=== PATIENT | male | born 1965 | race African-American/Black ===

== ENCOUNTER 2019-02-14 13:33 | Inpatient (IN) | payer OTHER ==
[2019-02-14 15:44] VITALS: BMI 24.7
--- NOTE | 2019-02-14 16:21 | HP ---
CIWA Score Nausea/Vomitin-Mild Nausea/No Vomiting Muscle Tremors: None Anxiety: 1-Mildly Anxious Agitation: 4-Moderately Restless Paroxysmal Sweats: No Perspiration Orientation: 1-Uncertain about Date Tacttile Disturbances: 0-None Auditory Disturbances: 0-None Visual Disturbances: 1-Very Mild Sensitivity Headache: 1-Very Mild CIWA-Ar Total Score: 9 - Admission Criteria OASAS Guidelines: Admission for Medically Managed Detox: Requires at least one of the followin. CIWA greater than 12 2. Seizures within the past 24 hours 3. Delirium tremens within the past 24 hours 4. Hallucinations within the past 24 hours 5. Acute intervention needed for co occurring medical disorder 6. Acute intervention needed for co occurring psychiatric disorder 7. Severe withdrawal that cannot be handled at a lower level of care (continued vomiting, continued diarrhea, abnormal vital signs) requiring intravenous medication and/or fluids 8. Admitting History and Physical - Admission History Source: Patient Limitations to Obtaining History: No Limitations - Past Medical History GOLD BUYER: Yes: Peripheral Neuropathy Cardiovascular: Yes: HTN, Hyperlipdemia, Other (peripheral vascular disease) Pulmonary: Yes: Asthma Psych: Yes: Bipolar, Schizophrenia - Past Surgical History Past Surgical History: Yes: Amputation (L 5 digits, R 5th digit) - Smoking History Smoking history: Never smoked Have you smoked in the past 12 months: No - Alcohol/Substance Use Hx Alcohol Use: Yes History of Substance Use: reports: Cocaine, Marijuana Date of Last Use: 02/13/19 - Social History Usual Living Arrangement: Yes: Alone (jail) Admission [facility] Chief Complaint: crack cocaine abuse Allergies/Adverse Reactions: Allergies Allergy/AdvReac Type Severity Reaction Status Date / Time Pork/Porcine Containing Allergy Intermediate Itching Verified 02/14/19 15:36 Products acetaminophen [From Tylenol] Allergy Mild Itching Verified 02/14/19 15:36 Pasta Allergy Intermediate Itching Uncoded 02/14/19 15:36 History of Present Illness: 53 y.o. M PMH DM2, HTN, HLD, asthma, schizophrenia and bipolar noncompliant with medications presenting for rehab. Pt is AOx1, not oriented to time or place , poor historian. Crack cocaine: Last use yesterday used 2g, $100. Uses 2x/ week. Route: smokes. Started in 1984. EtOH: 2x/ week. Drinks 1- 6 pack in 1 sitting. Marijuana: Uses occasionally. PSH: chest tube from abdominal foreign body. L- all 5 digits amputated 2013 R - August 2017- 5th digit Social hx: lives in jail. not working. Meds: metformin, albuterol inhaler, nifedipine, hydralazine, atorvastatin Exam Limitations: Altered Mental Status - Ebola screening Have you traveled outside of the country in the last 21 days: No Have you had contact with anyone from an Ebola affected area: No Do you have a fever: No - Review of Systems Constitutional: No Symptoms Reported EENT: reports: No Symptoms Reported Respiratory: reports: No Symptoms reported Cardiac: reports: No Symptoms Reported GI: reports: Nausea : reports: No Symptoms Reported Musculoskeletal: reports: No Symptoms Reported Integumentary: reports: No Symptoms Reported Neuro: reports: See HPI Endocrine: reports: No Symptoms Reported Hematology: reports: No Symptoms Reported Psychiatric: reports: Agitated, Disorientated Patient History - Patient Medical History Hx Anemia: No Hx Asthma: Yes (Pt is on Albuterol IH) Hx Chronic Obstructive Pulmonary Disease (COPD): No Hx Cancer: No Hx Cardiac Disorders: No Hx Congestive Heart Failure: No Hx Hypertension: No Hx Hypercholesterolemia: Yes Hx Pacemaker: No HX Cerebrovascular Accident: No Hx Seizures: No Hx Dementia: No Hx Diabetes: Yes (BGM: 317mg/dl) Hx Gastrointestinal Disorders: No Hx Liver Disease: No Hx Genitourinary Disorders: No Hx Sexually Transmitted Disorders: Yes (Gonorrhea 30 yrs ago) Hx Renal Disease (ESRD): No Hx Thyroid Disease: No Hx Human Immunodeficiency Virus (HIV): No Hx Hepatitis C: No Hx Depression: Yes Hx Suicide Attempt: No Hx Bipolar Disorder: No Hx Schizophrenia: Yes - Patient Surgical History Past Surgical History: Yes Hx Neurologic Surgery: No Hx Cataract Extraction: No Hx Cardiac Surgery: No Hx Lung Surgery: No Hx Breast Surgery: No Hx Breast Biopsy: No Hx Abdominal Surgery: No Hx Appendectomy: No Hx Cholecystectomy: No Hx Genitourinary Surgery: No Hx Orthopedic Surgery: Yes (2013 LEFT TOES AMPUTATION) Other Surgical History: 2004 KYLOID REMOVED Anesthesia Reaction: No - Smoking Cessation Smoking history: Never smoked Have you smoked in the past 12 months: No Hx Chewing Tobacco Use: No - Substance & Tx. History Hx Alcohol Use: Yes Hx Substance Use: Yes (crack cocaine) Substance Use Type: Alcohol, Cocaine, Marijuana - Substances abused Alcohol Substance route: Oral Frequency: Daily Amount used: 6 pk beer Age of first use: 8 Date of last use: 02/13/19 Cocaine Substance route: Smoking Frequency: 3-6 times per week Amount used: $10 Age of first use: 21 Date of last use: 02/13/19 Marijuana/Hashish Substance route: Smoking Admission Physical Exam [facility] - Vital Signs Vital Signs: Vital Signs - 24 hr 02/14/19 15:37 Temperature 96.6 F L Pulse Rate 82 Respiratory 18 Rate Blood Pressure 155/92 - Physical General Appearance: Yes: Disheveled, Irritable HEENTM: Yes: Hearing grossly Normal, Normocephalic, HARRY Respiratory: Yes: Within Normal Limits, Lungs Clear, Normal Breath Sounds, No Respiratory Distress, No Accessory Muscle Use Neck: Yes: No masses,lesions,Nodules Cardiology: Yes: Within Normal Limits, Regular Rhythm, Regular Rate Abdominal: Yes: Within Normal Limits, Non Tender, Soft Back: Yes: Within Normal Limits Musculoskeletal: Yes: full range of Motion Extremities: Yes: Normal Range of Motion, Other (Tenderness to palpation b/l LE' s knees through feet) Neurological: Yes: Alert, Disoriented (oriented only to self, not time or place) Integumentary: Yes: Pitting Edema (2+ pitting edema b/l LE) Lymphatic: Yes: Within Normal Limits - Diagnostic (1) Cocaine abuse Current Visit: Yes Status: Chronic (2) Asthma Current Visit: No Status: Chronic Qualifiers: Asthma severity: mild intermittent Asthma complication type: with status asthmaticus Qualified Code(s): J45.22 - Mild intermittent asthma with status asthmaticus (3) Diabetes mellitus, type II, insulin dependent Current Visit: No Status: Chronic Comment: PATIENT HAND IN ALL MEDICATIONS NO DIABETES MEDICATION WAS FOUND (4) Hypercholesteremia Current Visit: No Status: Chronic Comment: LIPITOR 20 MG (5) Hypertension Current Visit: No Status: Chronic Qualifiers: Hypertension type: essential hypertension Qualified Code(s): I10 - Essential (primary) hypertension Cleared for Admission S - Detox or Rehab [facility] Level of Care: Medically Managed Inpatient Rehab Admission - Rehab Decision to Admit Inpatient rehab admission?: Yes - Initial Determination Are CD services needed?: Yes Free of communicable disease: Yes Not in need of hospitalization: Yes - Rehab Admission Criteria Previous failed treatment: No Poor recovery environment: No Comorbidities: No Lacks judgement: Yes Patient is meeting Inpatient Rehab admission criteria:: Yes
[2019-02-14] MEDS ORDERED: P-EPHED 60MG/TRIPROLIDI 2.5MG TABLET PO PRN (16:59)
[2019-02-14] MEDS ORDERED: MENTHOL/PHENOL 1 EACH UD MM PRN (16:59)
[2019-02-14] MEDS ORDERED: MAGNESIUM CITRATE 300 ML BOTTLE PO PRN (16:59)
[2019-02-14] MEDS ORDERED: guaiFENesin 200 MG/10 ML 10 ML UNIT-DOSE CUPS PO PRN (16:59)
[2019-02-14] MEDS ORDERED: LOPERAMIDE HCL 2 MG CAPSULE PO PRN (16:59)
[2019-02-14] MEDS ORDERED: ACETAMINOPHEN 325 MG TABLET (FP) PO PRN (16:59)
[2019-02-14] MEDS ORDERED: MAGNESIUM HYDROX 2400MG/30ML ORAL SUSPENSION 30 ML CUP PO PRN (16:59)
[2019-02-14] MEDS ORDERED: MAG HYDROX/AL HYDROX/SIMETH 30 ML UNIT-DOSE CUP PO PRN (16:59)
[2019-02-14] MEDS ORDERED: ALBUTEROL SO4 8 GM HFA INHALER IH PRN (17:02)
--- NOTE | 2019-02-14 17:13 | PN ---
Teaching Attending Note Name of Resident: Brenda Rodriguez ATTENDING PHYSICIAN STATEMENT I saw and evaluated the patient. I reviewed the resident's note and discussed the case with the resident. I agree with the resident's findings and plan as documented. SUBJECTIVE:this 53 years old male with alcohol and cocaine abused,multiple medical problem,iddm,hypertension,hyperlipidemia,peripheral neuropathy,pvd, transmetatarsal amputation left in 1014, amputation of 5th digit right,bipolar disorder,schzophrenia OBJECTIVE: Vital Signs Temperature 96.6 F L 02/14/19 15:37 Pulse Rate 82 02/14/19 15:37 Respiratory Rate 18 02/14/19 15:37 Blood Pressure 155/92 02/14/19 15:37 O2 Sat by Pulse Oximetry (%) bgm 230 ASSESSMENT AND PLAN:this 53 years old male need rehab,psychiatric evaluation, and close monitoring
[2019-02-14] MEDS ORDERED: INSULIN SLIDING SCALE (NOVOLOG) 1 VIAL SQ SCH (22:00)
[2019-02-14] MEDS ORDERED: NIFEdipine E.R. 30 MG TABLET (FP) PO SCH (22:00)
[2019-02-14] MEDS: ATORVASTATIN CA 10 MG TABLET (FP) PO SCH (22:04)
[2019-02-14] MEDS: CARVEDILOL 12.5 MG TABLET (FP) PO SCH (22:04)
[2019-02-14] MEDS: THIAMINE HCL 100 MG TABLET (FP) PO SCH (22:05)
[2019-02-14] MEDS: INSULIN SLIDING SCALE (NOVOLOG) 1 VIAL SQ SCH (22:05)
[2019-02-15] MEDS: INSULIN SLIDING SCALE (NOVOLOG) 1 VIAL SQ SCH ×5 (07:48→23:11)
[2019-02-15] MEDS ORDERED: INSULIN (NOVOLOG) ASPART 100 UNITS/ML 10ML VIAL ONE ×2 (08:23→23:13)
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
[2019-02-15 10:08] LABS: HEMATOCRIT 27.9 % (35.4-49); HEMOGLOBIN 8.8 GM/dL (11.7-16.9); MCH 23.1 pg (25.7-33.7); MCHC 31.4 g/dl (32.0-35.9); MEAN CELL VOLUME 73.5 fl (80-96); MEAN PLT VOLUME 8.8 fl (7.5-11.1); PLATELET COUNT 205 K/MM3 (134-434); RDW 17.8 % (11.9-15.9); WHITE BLOOD COUNT 4.6 K/mm3 (4.0-10.0)
[2019-02-15 11:06] LABS: ALBUMIN 2.7 g/dl (3.4-5.0); BILIRUBIN,TOTAL 0.3 mg/dL (0.2-1); BLOOD UREA NITROGEN 64.2 mg/dL (7-18); CREATININE 3.2 mg/dL (0.55-1.3); POTASSIUM 4.6 mmol/L (3.5-5.1); TOT PROT 6.4 g/dl (6.4-8.2)
[2019-02-15] MEDS: NIFEdipine E.R. 30 MG TABLET (FP) PO SCH (11:11)
[2019-02-15] MEDS: CARVEDILOL 12.5 MG TABLET (FP) PO SCH ×3 (11:11→23:10)
[2019-02-15] MEDS: PRENATAL VITAMINS W/ FOLIC ACID TABLET (FP) PO SCH (11:12)
--- NOTE | 2019-02-15 12:25 | EKG ---
Test Reason : Blood Pressure : / mmHG Vent. Rate : 077 BPM Atrial Rate : 077 BPM P-R Int : 174 ms QRS Dur : 120 ms QT Int : 432 ms P-R-T Axes : 076 -34 114 degrees QTc Int : 488 ms NORMAL SINUS RHYTHM POSSIBLE LEFT ATRIAL ENLARGEMENT LEFT AXIS DEVIATION NON-SPECIFIC INTRA-VENTRICULAR CONDUCTION DELAY ABNORMAL ECG NO PREVIOUS ECGS AVAILABLE Confirmed by ALLI RODRIGUEZ MD ([id number]) on 02/15/2019 12:24:52 PM Referred By: BALAJI Confirmed By:ALLI RODRIGUEZ MD
[2019-02-15] MEDS: ATORVASTATIN CA 10 MG TABLET (FP) PO SCH ×2 (22:06→23:10)
[2019-02-15] MEDS: THIAMINE HCL 100 MG TABLET (FP) PO SCH ×2 (22:07→23:10)
[2019-02-15] MEDS: IBUPROFEN 400 MG TABLET (FP) PO PRN (23:38)
[2019-02-16] MEDS: INSULIN SLIDING SCALE (NOVOLOG) 1 VIAL SQ SCH ×4 (06:20→21:26)
--- NOTE | 2019-02-16 09:55 | PN ---
S Progress Note Note: Pt requesting oxycodone for feet pain- says motrin is not helping. d/w pt that we do not give oxycodone for pain- pt walked out of room.
[2019-02-16] MEDS: NIFEdipine E.R. 30 MG TABLET (FP) PO SCH (10:29)
[2019-02-16] MEDS: CARVEDILOL 12.5 MG TABLET (FP) PO SCH ×2 (10:29→21:26)
[2019-02-16] MEDS: PRENATAL VITAMINS W/ FOLIC ACID TABLET (FP) PO SCH (10:29)
[2019-02-16] MEDS: IBUPROFEN 400 MG TABLET (FP) PO PRN (10:32)
[2019-02-16] MEDS ORDERED: INSULIN (NOVOLOG) ASPART 100 UNITS/ML 10ML VIAL ONE (11:20)
[2019-02-16] MEDS: ATORVASTATIN CA 10 MG TABLET (FP) PO SCH (21:26)
[2019-02-16] MEDS: THIAMINE HCL 100 MG TABLET (FP) PO SCH (21:26)
--- NOTE | 2019-02-17 04:46 | PN ---
[facility] Progress Note Note: ASKED TO SEE CLIENT FOR COMPLAINT OF C.P. CLIENT REPORTS PAIN ALL OVER HIS BODY. MOSTLY IN HIS FEET WITH BURNING SENSATION , + SOB R/T PAIN. DENIES C.P., N/V, DIZZINESS, WEAKNESS. STATES HE DOES NOT WANT MOTRIN FOR PAIN AND WOULD LIKE SOMETHING STRONGER LIKE OXYCODONE. D/W CLIENT THat oxycodone is not given here. CLIENT BECAME QUIET AND DOES NOT WANT DIALOGUE WITH PROVIDER. STATING IF YOU CANT GIVE ME THAT THEN THERES NOTHING YOU CAN DO FOR ME. HE THEN YELLED OUT A BIG "UH" AND JUMPED IN HIS CHAIR WITH C/O C.P. CLIENT WAS OBSERVED SEATED COMFORTABLY IN HIS CHAIR, SHORTLY AFTERWARDS CLIENT RAISED SELF FROM CHAIR AND AMBULATED TO HIS ROOM WITHOUT ASSISTANCE OR DIFFICULTY AND LAID IN HIS BED. CLIENT SEEN A/O X3 SEATED IN WC IN HALLWAY, WITH 02 2 L NC , TACHYPNIC HEENT- NCAT, PERRLA, EOMI CV RRR LUNGS CTAB- O2 SAT 94%RA SKIN DRY INTACT EXTREMITIES- NOTED WITH NON PITTING EDEMA EKG C./W PREVIOUS NSR LEFT ATRIAL ENLARGMENT LEFT AXIS DEVIATION NON SPECIFIC INTRAVENTRICULAR CONDUCTION DELAY T WAVE ABN, CONSIDER LATERAL ISCHEMIA PROLONGED QT 432/475 ABN ECG VS 148/91/P-72, 24. T- 97.8 Laboratory Tests 02/14/19 02/15/19 02/15/19 16:52 02:45 06:05 WBC RBC Hgb Hct MCV MCH MCHC RDW Plt Count MPV Sodium Potassium Chloride Carbon Dioxide Anion Gap BUN Creatinine Est GFR (CKD-EPI)AfAm Est GFR (CKD-EPI)NonAf POC Glucometer 230 219 210 Random Glucose Calcium Total Bilirubin AST ALT Alkaline Phosphatase Total Protein Albumin RPR Titer HIV 1&2 Antibody Screen HIV P24 Antigen 02/15/19 02/15/19 02/15/19 08:10 08:10 08:10 WBC 4.6 RBC 3.80 L Hgb 8.8 L Hct 27.9 L D MCV 73.5 L MCH 23.1 L MCHC 31.4 L RDW 17.8 H Plt Count 205 MPV 8.8 Sodium 140 Potassium 4.6 Chloride 111 H Carbon Dioxide 20 L Anion Gap 9 BUN 64.2 H Creatinine 3.2 H Est GFR (CKD-EPI)AfAm 24.13 Est GFR (CKD-EPI)NonAf 20.82 POC Glucometer Random Glucose 229 H Calcium 8.0 L Total Bilirubin 0.3 AST 20 ALT 26 Alkaline Phosphatase 94 Total Protein 6.4 Albumin 2.7 L RPR Titer HIV 1&2 Antibody Screen Negative HIV P24 Antigen Negative 02/15/19 02/15/19 02/15/19 08:10 12:23 17:39 WBC RBC Hgb Hct MCV MCH MCHC RDW Plt Count MPV Sodium Potassium Chloride Carbon Dioxide Anion Gap BUN Creatinine Est GFR (CKD-EPI)AfAm Est GFR (CKD-EPI)NonAf POC Glucometer 145 242 Random Glucose Calcium Total Bilirubin AST ALT Alkaline Phosphatase Total Protein Albumin RPR Titer Nonreactive HIV 1&2 Antibody Screen HIV P24 Antigen 02/15/19 02/16/19 02/16/19 23:02 05:19 11:16 WBC RBC Hgb Hct MCV MCH MCHC RDW Plt Count MPV Sodium Potassium Chloride Carbon Dioxide Anion Gap BUN Creatinine Est GFR (CKD-EPI)AfAm Est GFR (CKD-EPI)NonAf POC Glucometer 278 141 291 Random Glucose Calcium Total Bilirubin AST ALT Alkaline Phosphatase Total Protein Albumin RPR Titer HIV 1&2 Antibody Screen HIV P24 Antigen 02/16/19 02/16/19 17:04 21:22 WBC RBC Hgb Hct MCV MCH MCHC RDW Plt Count MPV Sodium Potassium Chloride Carbon Dioxide Anion Gap BUN Creatinine Est GFR (CKD-EPI)AfAm Est GFR (CKD-EPI)NonAf POC Glucometer 144 343 Random Glucose Calcium Total Bilirubin AST ALT Alkaline Phosphatase Total Protein Albumin RPR Titer HIV 1&2 Antibody Screen HIV P24 Antigen THIS IS A 53 Y.O. MALE HERE FOR REHAB FOR ALCOHOL AND COCAINE ABUSE. PMHX HTN , ASTHMA, HLD, PVD, NEUROPATHY, DM-2. CLIENT IS A POOR HISTORIAN CONT TO DENY C.P. WHEN ASKED. APPEARS TO BE DRUG SEEKING. EKG C/W PREVIOUS NO ACUTE DISTRESS NOTED AT THIS TIME. CLIENT OOB BACK AND FORTH STANDING OVER PROVIDER ALSO COMPLAINING OF BACK PAIN. CLIENT DECLINES NEURONTIN STATES HIS DOCTOR TOLD HIM TO STOP TAKING IT. . P- TORADOL 15 MG IM X 1 DOSE CONT TO MONITOR CLINICALLY AND MAINTAIN SAFETY ELEVATED BUN/ CREATININE NOTED, CLIENT REPORTS CHRONIC KIDNEY ISSUES WILL REPEAT CHEM SINCE NO OTHER LABS TO COMPARE LIDOCAINE PATCH FOR BACK PAIN
[2019-02-17] MEDS ORDERED: KETOROLAC TROMETHAMINE 15 MG/ML VIAL IM ONE ×2 (04:50→10:15)
[2019-02-17] MEDS: INSULIN SLIDING SCALE (NOVOLOG) 1 VIAL SQ SCH ×4 (08:23→21:21)
--- NOTE | 2019-02-17 09:50 | PN ---
S Progress Note Note: Vital Signs Temperature 97.8 F 02/17/19 06:39 Pulse Rate 81 02/17/19 09:30 Respiratory Rate 18 02/17/19 09:30 Blood Pressure 144/83 02/17/19 09:30 O2 Sat by Pulse Oximetry (%) patient evaluated d/t report of not feeling well. Patient seen on the unit, patient refuse to answer writers questions, reports he does not talk much reports hx of COPD and CHF, chronic b/l lower extremity pain Aox3 no acute distress EENT WNL lungs clear through out no edema or erythema b/l lower extremities patient highly encourage to cooperative with staff to better meet his needs continue to monitor
[2019-02-17] MEDS: CARVEDILOL 12.5 MG TABLET (FP) PO SCH ×2 (10:50→21:18)
[2019-02-17] MEDS: NIFEdipine E.R. 30 MG TABLET (FP) PO SCH (10:50)
[2019-02-17] MEDS: PRENATAL VITAMINS W/ FOLIC ACID TABLET (FP) PO SCH (10:50)
[2019-02-17] MEDS: LIDOCAINE 5% TOPICAL PATCH TP SCH (10:51)
[2019-02-17 11:09] LABS: ALBUMIN 3.1 g/dl (3.4-5.0); BILIRUBIN,TOTAL 0.2 mg/dL (0.2-1); BLOOD UREA NITROGEN 60.7 mg/dL (7-18); CALCIUM 8.3 mg/dL (8.5-10.1); POTASSIUM 4.9 mmol/L (3.5-5.1); TOT PROT 6.9 g/dl (6.4-8.2)
[2019-02-17] MEDS ORDERED: INSULIN (NOVOLOG) ASPART 100 UNITS/ML 10ML VIAL ONE (12:00)
[2019-02-17] MEDS: THIAMINE HCL 100 MG TABLET (FP) PO SCH (21:17)
[2019-02-17] MEDS: ATORVASTATIN CA 10 MG TABLET (FP) PO SCH (21:18)
[2019-02-17] MEDS: MELATONIN 5 MG TABLETS PO PRN (21:18)
[2019-02-17] MEDS: LIDOCAINE PATCH REMOVAL MC SCH (21:18)
[2019-02-17] MEDS: METHOCARBAMOL 500 MG TABLET PO PRN (23:51)
[2019-02-18] MEDS: INSULIN SLIDING SCALE (NOVOLOG) 1 VIAL SQ SCH ×4 (07:06→22:35)
[2019-02-18] MEDS: NIFEdipine E.R. 30 MG TABLET (FP) PO SCH (10:26)
[2019-02-18] MEDS: CARVEDILOL 12.5 MG TABLET (FP) PO SCH ×2 (10:26→22:30)
[2019-02-18] MEDS: PRENATAL VITAMINS W/ FOLIC ACID TABLET (FP) PO SCH (10:26)
[2019-02-18] MEDS: LIDOCAINE 5% TOPICAL PATCH TP SCH (10:26)
[2019-02-18] MEDS ORDERED: INSULIN (NOVOLOG) ASPART 100 UNITS/ML 10ML VIAL ONE (10:56)
[2019-02-18] MEDS: ALBUTEROL SO4 2.5/IPRATROPIUM 0.5 INH SOL 3 ML VIAL.NEB. NEB PRN (11:29)
[2019-02-18] MEDS: THIAMINE HCL 100 MG TABLET (FP) PO SCH (22:29)
[2019-02-18] MEDS: METHOCARBAMOL 500 MG TABLET PO PRN (22:29)
[2019-02-18] MEDS: MELATONIN 5 MG TABLETS PO PRN (22:29)
[2019-02-18] MEDS: ATORVASTATIN CA 10 MG TABLET (FP) PO SCH (22:30)
[2019-02-18] MEDS: LIDOCAINE PATCH REMOVAL MC SCH (22:30)
[2019-02-19] MEDS: ALBUTEROL SO4 2.5/IPRATROPIUM 0.5 INH SOL 3 ML VIAL.NEB. NEB PRN (00:40)
[2019-02-19] MEDS ORDERED: INSULIN (NOVOLOG) ASPART 100 UNITS/ML 10ML VIAL ONE ×2 (06:59→11:27)
[2019-02-19 07:16] VITALS: TEMP 97.7
[2019-02-19] MEDS: INSULIN SLIDING SCALE (NOVOLOG) 1 VIAL SQ SCH ×4 (07:32→21:32)
--- NOTE | 2019-02-19 10:27 | PN ---
[facility] Progress Note Note: PATIENT SEEN FOR FOLLOW UP AFTER HAVING SOB AND O2 SAT OF 94% LAST NIGHT. PATIENT HAS HX OF ASTHMA AND SCHIZOPHRENIA. POOR HISTORIAN. TREATED WITH O2 2 L VIA NC AND ALBUTEROL NEBULIZER TREATMENT WITH MINIMAL EFFECT. PATIENT EVALUATED IN BED. DENIES FEVER, COUGH, CHEST PAIN, DIZZINESS. C/O MILD SOB. PE: V/S O2 SATS 93-94% ROOM AIR (REMOVED O2), HR 72- RR 19 BP 127/72 ALERT AND ORIENTED X NAME AND PLACE SKIN WARM AND DRY +PERRLA, EOMS INTACT BL CAR [id number] LIMITED DUE TO PATIENT POSITION AND REFUSAL TO SIT UP RESP CTA BL, NO WHEEZES OR RALES EXT NO TREMORS, NO SWELLING OF HANDS REFUSED TO SHOW FEET A/P: HX OF ASTHMA MILD SOB WITH SUBTHERAPEUTIC O2 SATS WILL CONTINUE NEBULIZERS AND O2 VIA NC ORDERED CXR TODAY CONTINUE TO MONITOR CLINICALLY
--- NOTE | 2019-02-19 11:05 | EKG ---
Test Reason : Blood Pressure : / mmHG Vent. Rate : 073 BPM Atrial Rate : 073 BPM P-R Int : 168 ms QRS Dur : 118 ms QT Int : 432 ms P-R-T Axes : 077 -34 082 degrees QTc Int : 475 ms NORMAL SINUS RHYTHM POSSIBLE LEFT ATRIAL ENLARGEMENT LEFT AXIS DEVIATION NON-SPECIFIC INTRA-VENTRICULAR CONDUCTION DELAY T WAVE ABNORMALITY, CONSIDER LATERAL ISCHEMIA PROLONGED QT ABNORMAL ECG WHEN COMPARED WITH ECG OF 14-FEB-2019 17:13, NO SIGNIFICANT CHANGE WAS FOUND Confirmed by ARNAV ENGLE, JADEN ([id number]) on 02/19/2019 11:04:38 AM Referred By: Confirmed By:JADEN JOSÉ MD
[2019-02-19] MEDS: NIFEdipine E.R. 30 MG TABLET (FP) PO SCH (11:18)
[2019-02-19] MEDS: PRENATAL VITAMINS W/ FOLIC ACID TABLET (FP) PO SCH (11:19)
[2019-02-19] MEDS: CARVEDILOL 12.5 MG TABLET (FP) PO SCH ×2 (11:19→21:28)
[2019-02-19] MEDS: LIDOCAINE 5% TOPICAL PATCH TP SCH (11:20)
[2019-02-19 21:19] VITALS: BP 157/93; PULSE 79
[2019-02-19] MEDS: ATORVASTATIN CA 10 MG TABLET (FP) PO SCH (21:27)
[2019-02-19] MEDS: LIDOCAINE PATCH REMOVAL MC SCH (21:27)
[2019-02-19] MEDS: THIAMINE HCL 100 MG TABLET (FP) PO SCH (21:28)
[2019-02-19] MEDS ORDERED: PT OWN MED DRAWER 7, Y5N ONE (22:35)
--- NOTE | 2019-02-19 23:46 | PN ---
[facility] Progress Note Note: Patient c/o severe foot and leg pain. States a "10" unrelieved by meds. BLE edema (R) > (L); (L) foot hx. transmetatarsal amputation. (R) foot hx amputation 5th toe. Denies chest pain/SOB. Hx: DM/HTN; Cocaine and alcohol use disorder. Vital Signs - 24 hr 02/19/19 02/19/19 07:16 21:18 Temperature 97.7 F Pulse Rate 69 79 Respiratory 20 Rate Blood Pressure 142/106 H 157/93 CMP Sodium 142 mmol/L (136-145) 02/17/19 07:45 Potassium 4.9 mmol/L (3.5-5.1) 02/17/19 07:45 Chloride 114 mmol/L (98-107) H 02/17/19 07:45 Carbon Dioxide 22 mmol/L (21-32) 02/17/19 07:45 Anion Gap 7 MMOL/L (8-16) L 02/17/19 07:45 BUN 60.7 mg/dL (7-18) H 02/17/19 07:45 Creatinine 3.0 mg/dL (0.55-1.3) H 02/17/19 07:45 Est GFR (CKD-EPI)AfAm 26.09 02/17/19 07:45 Est GFR (CKD-EPI)NonAf 22.51 02/17/19 07:45 POC Glucometer 338 UNITS (80-120) 02/19/19 21:30 Random Glucose 132 mg/dL (74-106) H 02/17/19 07:45 Calcium 8.3 mg/dL (8.5-10.1) L 02/17/19 07:45 Total Bilirubin 0.2 mg/dL (0.2-1) 02/17/19 07:45 AST 19 U/L (15-37) 02/17/19 07:45 ALT 26 U/L (13-61) 02/17/19 07:45 Alkaline Phosphatase 94 U/L (45-117) 02/17/19 07:45 Total Protein 6.9 g/dl (6.4-8.2) 02/17/19 07:45 Albumin 3.1 g/dl (3.4-5.0) L 02/17/19 07:45 Plan: Send to [facility] ED via ambulance for eval. Report given to Dr. Huerta.
== END 2019-02-19 23:55 | disposition short-term general hospital (02) | DRG 772 ==
LOC: YASAS 13:33 → Y3W 17:08
PROVIDERS: ADMIT Neuromusculoskeletal Medicine & OMM; ATTEND Neuromusculoskeletal Medicine & OMM
PROC: HZ42ZZZ Group Counseling for Substance Abuse Treatment, Cognitive-Behavioral (ICD-10-PCS; principal; 2019-02-14)
DX: F10.20 Alcohol dependence, uncomplicated (principal); F14.20 Cocaine dependence, uncomplicated; F12.20 Cannabis dependence, uncomplicated; F19.24 Other psychoactive substance dependence with psychoactive substance-induced mood disorder; F19.282 Other psychoactive substance dependence with psychoactive substance-induced sleep disorder; I11.0 Hypertensive heart disease with heart failure; E78.5 Hyperlipidemia, unspecified; I45.81 Long QT syndrome; R94.31 Abnormal electrocardiogram [ECG] [EKG]; E11.42 Type 2 diabetes mellitus with diabetic polyneuropathy; Z79.4 Long term (current) use of insulin; I50.9 Heart failure, unspecified; I73.9 Peripheral vascular disease, unspecified; J45.22 Mild intermittent asthma with status asthmaticus; R60.0 Localized edema; Z89.432 Acquired absence of left foot; Z89.421 Acquired absence of other right toe(s); R07.9 Chest pain, unspecified; R06.02 Shortness of breath; M79.601 Pain in right arm; M79.602 Pain in left arm; M79.604 Pain in right leg; M79.605 Pain in left leg; Z88.6 Allergy status to analgesic agent; Z91.410 Personal history of adult physical and sexual abuse; Z87.438 Personal history of other diseases of male genital organs; Z91.14 Patient's other noncompliance with medication regimen
CPT/HCPCS: 36415; 71046-TC-FY; 80053; 82962; 85027; 86593; 87389; 93005; 93010; 94640

== ENCOUNTER 2019-02-20 00:55 | Inpatient (IN) | payer OTHER ==
--- NOTE | 2019-02-20 01:45 | PDOC ---
*Physical Exam - Vital Signs Last Vital Signs Temp Pulse Resp BP Pulse Ox 97.9 F 88 18 154/75 100 02/20/19 01:04 02/20/19 01:04 02/20/19 01:04 02/20/19 01:04 02/20/19 01:04 ED Treatment Course - LABORATORY CBC & Chemistry Diagram: 02/20/19 02:45 Medical Decision Making - Medical Decision Making 02/20/19 01:44 Patient seen by the advanced practice provider under my direct supervision. Ancillary testing reviewed as necessary. I agree with plan as outlined by the advanced practice provider. Discharge - Discharge Information Problems reviewed: Yes Clinical Impression/Diagnosis: Leg pain, bilateral, Shortness of breath - Follow up/Referral - Patient Discharge Instructions - Post Discharge Activity
--- NOTE | 2019-02-20 02:00 | PDOC ---
History of Present Illness - General Chief Complaint: Pain Stated Complaint: RIGHT FOOT PAIN Time Seen by Provider: 02/20/19 01:43 History Source: Patient - History of Present Illness Initial Comments: 02/20/19 01:56 53 year old with history of DM, HTN, asthma, toe amputation , cocaine and alcohol abuse currently in [facility] with worsening SOB x 4 days and right leg swelling worse than left. patient was sent from [facility] for evaluation. denies chest pain, fever/ chills, nausea/ vomiting. patient is also complaining of itchy skin PMD: [facility] Past History - Past Medical History Allergies/Adverse Reactions: Allergies Allergy/AdvReac Type Severity Reaction Status Date / Time Pork/Porcine Containing Allergy Intermediate Itching Verified 02/20/19 01:28 Products acetaminophen [From Tylenol] Allergy Mild Itching Verified 02/20/19 01:28 Pasta Allergy Intermediate Itching Uncoded 02/20/19 01:28 Home Medications: Ambulatory Orders Albuterol Sulfate Inhaler - [Ventolin HFA Inhaler -] 2 puff IH QID PRN 03/31/16 Atorvastatin Ca [Lipitor] 10 mg PO HS 03/31/16 Carvedilol [Coreg -] 12.5 mg PO BID 02/14/19 Insulin Glargine,Hum.rec.anlog [Basaglar Kwikpen U-100] 15 unit SQ HS 02/14/19 Insulin Glargine,Hum.rec.anlog [Basaglar Kwikpen U-100] 20 unit SQ DAILY Metformin HCl [Glucophage] 1,000 mg PO BID 02/14/19 Nifedipine ER [Procardia Xl -] 30 mg PO BID 02/14/19 Anemia: No Asthma: Yes (Pt is on Albuterol IH) Cancer: No Cardiac Disorders: No CVA: No COPD: No CHF: No Dementia: No Diabetes: Yes (BGM: 317mg/dl) GI Disorders: No Disorders: No HTN: No Hypercholesterolemia: Yes Kidney Stones: No Liver Disease: No Seizures: No Thyroid Disease: No - Surgical History Abdominal Surgery: No Appendectomy: No Cardiac Surgery: No Cholecystectomy: No Lung Surgery: No Neurologic Surgery: No Orthopedic Surgery: Yes (2013 LEFT TOES AMPUTATION) - Reproductive History Testicular Surgery: No - Psycho Social/Smoking Cessation Hx Smoking History: Never smoked Have you smoked in the past 12 months: No Number of Cigarettes Smoked Daily: 10 Information on smoking cessation initiated: No Hx Alcohol Use: Yes Drug/Substance Use Hx: Yes Substance Use Type: Alcohol, Cocaine, Marijuana Hx Substance Use Treatment: No *Physical Exam - Vital Signs Last Vital Signs Temp Pulse Resp BP Pulse Ox 97.9 F 88 18 154/75 100 02/20/19 01:04 02/20/19 01:04 02/20/19 01:04 02/20/19 01:04 02/20/19 01:04 - Physical Exam General Appearance: Yes: Appropriately Dressed, Mild Distress Respiratory/Chest: positive: Lungs Clear, Normal Breath Sounds, Labored Respiration Cardiovascular: positive: Regular Rhythm, Regular Rate Gastrointestinal/Abdominal: positive: Normal Bowel Sounds, Soft. negative: Tender Extremity: positive: Normal Capillary Refill, Other (right legswelling > left leg swelling) Integumentary: positive: Normal Color, Dry, Warm, Other (excoriated skin with multiple stages of healing.) Neurologic: positive: Fully Oriented, Alert, Normal Mood/Affect Heart Score/ECG Review - History History: Slightly suspicious - Electrocardiogram EKG: Normal - Age Age: 45-65 - Risk Factors Risk Factors Heart Score: Yes Hx Hypercholesterolemia, Yes Hx Hypertension, Yes Hx Diabetes Based on the list above the patient has:: >/=3 risk factors or Hx atherosclerotic disease - Troponin Troponin: 1-3x normal limit - Score Heart Score - Total: 4 ED Treatment Course - LABORATORY CBC & Chemistry Diagram: 02/20/19 04:00 02/20/19 02:45 - RADIOLOGY Radiology Studies Ordered: Category Date Time Status CHEST PA & LAT [RAD] Stat Radiology 02/20/19 01:54 Ordered DUPLEX VASCUL US-2LEGS [US] Stat Ultrasound 02/20/19 01:54 Ordered Medical Decision Making - Medical Decision Making 02/20/19 02:55 US : negative for DVT 02/20/19 04:07 A: SOB likely due to Renal failure / fluid overload; r/o DVT P: cbc cmp pt ptt BNP Troponin EKG Chest xray:worsening congestion, cardiomegaly 02/20/19 04:53 02/20/19 05:03 patient signed out to Dr. Keenan/ Osorio for admision and further management of care. Discharge - Discharge Information Problems reviewed: Yes Clinical Impression/Diagnosis: Leg pain, bilateral, Shortness of breath, Elevated brain natriuretic peptide ( BNP) level, Uremic pruritus Renal failure Qualifiers: Renal failure chronicity: acute on chronic Acute renal failure type: unspecified Chronic kidney disease stage: unspecified stage Qualified Code(s): N17.9 - Acute kidney failure, unspecified - Admission Yes - Follow up/Referral - Patient Discharge Instructions - Post Discharge Activity
[2019-02-20 03:32] LABS: ALBUMIN 2.9 g/dl (3.4-5.0); BILIRUBIN,TOTAL 0.2 mg/dL (0.2-1); BLOOD UREA NITROGEN 51.3 mg/dL (7-18); CALCIUM 8.1 mg/dL (8.5-10.1); CREATININE 2.9 mg/dL (0.55-1.3); N-TERMINAL BNP 15532.1 pg/ml (5-125); POTASSIUM 5.1 mmol/L (3.5-5.1); TOT PROT 6.8 g/dl (6.4-8.2)
[2019-02-20] MEDS ORDERED: diphenhydrAMINE HCL 25 MG CAPSULE (FP) PO ONE ×2 (03:43→03:44)
[2019-02-20] MEDS ORDERED: traMADol HCL 50 MG TABLET PO ONE ×2 (03:44→04:41)
[2019-02-20] MEDS ORDERED: FUROSEMIDE 40 MG/4 ML INJECTABLE VIAL IVPUSH ONE (04:02)
[2019-02-20 04:14] LABS: BASO % 1.3 % (0-2.0); EOS % 2.2 % (0-4.5); HEMATOCRIT 30.3 % (35.4-49); HEMOGLOBIN 9.2 GM/dL (11.7-16.9); LYMPH % 15.3 % (8-40); MCHC 30.2 g/dl (32.0-35.9); MEAN CELL VOLUME 76.2 fl (80-96); MEAN PLT VOLUME 8.7 fl (7.5-11.1); MONO % 8.7 % (3.8-10.2); NEUT % 72.5 % (42.8-82.8); PLATELET COUNT 242 K/MM3 (134-434); RBC 3.98 M/mm3 (4.00-5.60); RDW 18.3 % (11.9-15.9); WHITE BLOOD COUNT 7.8 K/mm3 (4.0-10.0)
[2019-02-20 04:34] LABS: INR 1.17 (0.83-1.09); PROTHROMBIN TIME (PATIENT) 13.8 SEC (9.7-13.0)
[2019-02-20] MEDS ORDERED: FUROSEMIDE 40 MG/4 ML INJECTABLE VIAL ONE (04:43)
[2019-02-20] MEDS ORDERED: traMADol HCL 50 MG TABLET ONE (04:43)
--- NOTE | 2019-02-20 04:57 | PN ---
Teaching Attending Note Name of Resident: Ruby Keenan ATTENDING PHYSICIAN STATEMENT I saw and evaluated the patient. I reviewed the resident's note and discussed the case with the resident. I agree with the resident's findings and plan as documented. SUBJECTIVE: 53 year old with CHF,DM, HTN, CKD, asthma, toe amputation , Crack cocaine and alcohol abuse currently in [facility] with worsening SOB x 4 days and Bilateral lower extremity swelling. Patient reports shortness of breath worse with lying down than sitting up. His exercise tolerance has decreased and he cannot even walk 1 block.Denies any overt chest pain however complains of itchiness all over his body. OBJECTIVE: Last Vital Signs Temp Pulse Resp BP Pulse Ox 97.9 F 88 18 154/75 100 02/20/19 01:04 02/20/19 01:04 02/20/19 01:04 02/20/19 01:04 02/20/19 03:04 GENERAL: Well developed, well nourished. Awake and alert. No acute distress. HEENT: Normocephalic, atraumatic. PERRLA, EOMI. No conjunctival pallor. Sclera are non- icteric. Moist mucous membranes. Oropharynx is clear. NECK: Supple. Full ROM. Positive JVD. Carotid pulses 2+ and symmetric, without bruits. No thyromegaly. No lymphadenopathy. CARDIOVASCULAR: Regular rate and rhythm. No murmurs, rubs, or gallops. Distal pulses are 2+ and symmetric. PULMONARY: No evidence of respiratory distress. Bibasilar crackles appreciated on lung exam ABDOMINAL: Soft. Non-tender. Non-distended. No rebound or guarding. No organomegaly. Normoactive bowel sounds. MUSCULOSKELETAL Normal range of motion at all joints. No bony deformities or tenderness. No CVA tenderness. EXTREMITIES: Left foot transmetatarsal amputation, right foot right hallux status post amputation SKIN: Warm and dry. Normal capillary refill. No rashes. No jaundice. PSYCHIATRIC: Cooperative. Good eye contact. Appropriate mood and affect. Abnormal Lab Results 02/20/19 02/20/19 02/20/19 02:45 04:00 04:00 RBC 3.98 L Hgb 9.2 L Hct 30.3 L MCV 76.2 L MCH 23.0 L MCHC 30.2 L RDW 18.3 H PT with INR INR PTT (Actin FS) 38.4 H Chloride 117 H Anion Gap 5 L BUN 51.3 H Creatinine 2.9 H Calcium 8.1 L AST 13 L B-Natriuretic Peptide 67627.1 H Albumin 2.9 L 02/20/19 04:00 RBC Hgb Hct MCV MCH MCHC RDW PT with INR 13.80 H INR 1.17 H PTT (Actin FS) Chloride Anion Gap BUN Creatinine Calcium AST B-Natriuretic Peptide Albumin Imaging reviewed Chest x-ray noted to have what appears to be bilateral pleural effusions as well as pulmonary vascular congestion with possible pulmonary edema and cardiomegaly ASSESSMENT AND PLAN: 53-year-old male with likely CHF exacerbation with concurrent fluid overload, pulmonary edema and pleural effusions. No echo on file. Admit to telemetry Trend troponins I's and O's Daily weights Fluid restriction Salt restriction IV furosemide 40 mg twice daily Transthoracic echo Urine toxicology Cardiology evaluation Beta-dada No ANGEL inhibitor at this time due to CKD Check magnesium Advised cocaine cessation #CKDlikely secondary to uncontrolled diabetes and hypertension, UA found to have proteinuria Avoid nephrotoxins Send A1c Renal ultrasound #Anemiamicrocytic Would send stool for fecal occult blood Ferritin, iron studies, vitamin B12 Polysubstance abuse including crack cocaine and EtOH [facility] protocol Urine toxicology screen EtOH level Counseled on cocaine cessation Return to [facility] upon discharge DVT prophylaxisheparin subcutaneous
[2019-02-20] MEDS ORDERED: LORazepam 2 MG/ML SDV VIAL IVPUSH PRN (05:26)
--- NOTE | 2019-02-20 05:31 | HP ---
CHIEF COMPLAINT: SOB for 4 days with worsening leg swelling PCP: goes to [facility] HISTORY OF PRESENT ILLNESS: 53 year old male with Pmhx of CHF, CKD (cr in 2016 2.0), HTN, DM (on insulin), asthma, cocaine and alcohol abuse presents from [facility] for worsening shortness of breath of 4 days duration, bilateral lower extremity swelling, and itchiness all over his body. Pt reports dyspnea on exertion and orthopnea. Pt also reports 5-6 episodes of NBNB vomiting a couple of days ago. Denies chest pain,palpitation, weight gain, nausea, changes in BM and urination. Pt admits to non adherence to his lasix. Denies ever seeing a heart doctor but he is aware of his history of CHF. ER course was notable for: (1) CBC remarkable for anemia, CMP remarkable for borderline elevated K 5.1, BUN 51.3, Cr 2.9. (2) BNP 72764.1, CXR with cardiomegaly and fluid overload and congestive changes. duplex US neg for DVT (3) Benadryl, lasix, tramadol Recent Travel: [place] to visit family PAST MEDICAL HISTORY: as described above PAST SURGICAL HISTORY: denies Social History: Smoking: denies Alcohol:pt drinks here and there but per chart Pt has alcohol abuse Drugs: cocaine, marijuana, alcohol Allergies Pork/Porcine Containing Products Allergy (Intermediate, Verified 02/20/19 01:28) Itching acetaminophen [From Tylenol] Allergy (Mild, Verified 02/20/19 01:28) Itching Pasta Allergy (Intermediate, Uncoded 02/20/19 01:28) Itching HOME MEDICATIONS: Home Medications Medication Instructions Recorded Albuterol Sulfate Inhaler - 2 puff IH QID PRN 03/31/16 [Ventolin HFA Inhaler -] Atorvastatin Ca [Lipitor] 10 mg PO HS 03/31/16 Carvedilol [Coreg -] 12.5 mg PO BID 02/14/19 Insulin Glargine,Hum.rec.anlog 15 unit SQ HS 02/14/19 [Basaglar Kwikpen U-100] Insulin Glargine,Hum.rec.anlog 20 unit SQ DAILY 02/14/19 [Basaglar Kwikpen U-100] Metformin HCl [Glucophage] 1,000 mg PO BID 02/14/19 Nifedipine ER [Procardia Xl -] 30 mg PO BID 02/14/19 REVIEW OF SYSTEMS CONSTITUTIONAL: Absent: fever, chills, diaphoresis, generalized weakness, malaise, loss of appetite, weight change HEENT: Absent: rhinorrhea, nasal congestion, throat pain, throat swelling, difficulty swallowing, mouth swelling, ear pain, eye pain, visual changes CARDIOVASCULAR: Absent: chest pain, syncope, palpitations, irregular heart rate, lightheadedness , peripheral edema RESPIRATORY: shortness of breath, dyspnea with exertion Absent: cough, orthopnea, wheezing, stridor, hemoptysis GASTROINTESTINAL: Absent: abdominal pain, abdominal distension, nausea, vomiting, diarrhea, constipation, melena, hematochezia GENITOURINARY: Absent: dysuria, frequency, urgency, hesitancy, hematuria, flank pain, genital pain MUSCULOSKELETAL: Absent: myalgia, arthralgia, joint swelling, back pain, neck pain SKIN: itching Absent: rash, pallor HEMATOLOGIC/IMMUNOLOGIC: Absent: easy bleeding, easy bruising, lymphadenopathy, frequent infections ENDOCRINE: Absent: unexplained weight gain, unexplained weight loss, heat intolerance, cold intolerance NEUROLOGIC: Absent: headache, focal weakness or paresthesias, dizziness, unsteady gait, seizure, mental status changes, bladder or bowel incontinence PSYCHIATRIC: Absent: anxiety, depression, suicidal or homicidal ideation, hallucinations. PHYSICAL EXAMINATION Vital Signs - 24 hr 02/20/19 02/20/19 02/20/19 01:04 03:04 05:16 Temperature 97.9 F Pulse Rate 88 Pulse Rate [ 89 Radial] Respiratory 18 20 Rate Blood Pressure 154/75 Blood Pressure 130/70 [Right Arm] O2 Sat by Pulse 100 100 Oximetry (%) 02/20/19 05:17 Temperature Pulse Rate Pulse Rate [ Radial] Respiratory Rate Blood Pressure Blood Pressure [Right Arm] O2 Sat by Pulse 99 Oximetry (%) GENERAL: Awake, alert, and fully oriented, in mod distress. HEAD: Normal with no signs of trauma. EYES: Pupils equal, round and reactive to light, extraocular movements intact, sclera anicteric, conjunctiva clear. No lid lag. EARS, NOSE, THROAT: oropharynx clear without exudates. Moist mucous membranes. NECK: Normal range of motion, supple with JVD LUNGS: Breath sounds equal, clear to auscultation bilaterally with crackles specially in mid to lower lung tellez HEART: Regular rate and rhythm, normal S1 and S2 without murmur, rub or gallop. ABDOMEN: Soft, nontender, not distended, normoactive bowel sounds, no guarding, no rebound, no masses. No hepatomegaly or splenomegaly. MUSCULOSKELETAL: Normal range of motion at all joints. No bony deformities or tenderness. No CVA tenderness. UPPER EXTREMITIES: 2+ pulses, warm, well-perfused. No cyanosis. No clubbing. No peripheral edema. LOWER EXTREMITIES: 2+ pulses, warm, well-perfused. No calf tenderness. 1+ edema up to the knees. amputation on L metatarsal and 5 toe on the right PSYCHIATRIC: Cooperative. Good eye contact. Appropriate mood and affect. SKIN: Warm, dry, excoriations throughout. with venous stasis changes Laboratory Results - last 24 hr 02/20/19 02/20/19 02/20/19 02:25 02:45 02:45 WBC RBC Hgb Hct MCV MCH MCHC RDW Plt Count MPV Absolute Neuts (auto) Neutrophils % Lymphocytes % Monocytes % Eosinophils % Basophils % Nucleated RBC % PT with INR INR PTT (Actin FS) Sodium Cancelled Potassium Cancelled Chloride Cancelled Carbon Dioxide Cancelled Anion Gap Cancelled BUN Cancelled Creatinine Cancelled Est GFR (CKD-EPI)AfAm Cancelled Est GFR (CKD-EPI)NonAf Cancelled POC Glucometer 86 Random Glucose Cancelled Calcium Cancelled Total Bilirubin Cancelled AST Cancelled ALT Cancelled Alkaline Phosphatase Cancelled Troponin I B-Natriuretic Peptide Cancelled Total Protein Cancelled Albumin Cancelled 02/20/19 02/20/19 02/20/19 02:45 04:00 04:00 WBC 7.8 RBC 3.98 L Hgb 9.2 L Hct 30.3 L MCV 76.2 L MCH 23.0 L MCHC 30.2 L RDW 18.3 H Plt Count 242 MPV 8.7 Absolute Neuts (auto) 5.7 Neutrophils % 72.5 Lymphocytes % 15.3 Monocytes % 8.7 Eosinophils % 2.2 Basophils % 1.3 Nucleated RBC % 0 PT with INR INR PTT (Actin FS) 38.4 H Sodium 144 Potassium 5.1 Chloride 117 H Carbon Dioxide 21 Anion Gap 5 L BUN 51.3 H Creatinine 2.9 H Est GFR (CKD-EPI)AfAm 27.18 Est GFR (CKD-EPI)NonAf 23.45 POC Glucometer Random Glucose 89 Calcium 8.1 L Total Bilirubin 0.2 AST 13 L ALT 23 Alkaline Phosphatase 92 Troponin I 0.03 B-Natriuretic Peptide 91038.1 H Total Protein 6.8 Albumin 2.9 L 02/20/19 04:00 WBC RBC Hgb Hct MCV MCH MCHC RDW Plt Count MPV Absolute Neuts (auto) Neutrophils % Lymphocytes % Monocytes % Eosinophils % Basophils % Nucleated RBC % PT with INR 13.80 H INR 1.17 H PTT (Actin FS) Sodium Potassium Chloride Carbon Dioxide Anion Gap BUN Creatinine Est GFR (CKD-EPI)AfAm Est GFR (CKD-EPI)NonAf POC Glucometer Random Glucose Calcium Total Bilirubin AST ALT Alkaline Phosphatase Troponin I B-Natriuretic Peptide Total Protein Albumin ASSESSMENT/PLAN: 53 year old male with Pmhx of CHF, CKD (cr in 2016 2.0), HTN, DM (on insulin), asthma, cocaine and alcohol abuse presents from [facility] for worsening shortness of breath of 4 days duration, bilateral lower extremity swelling, and itchiness all over his body. admitted for fluid overload from CHF/CKD SOB 2/2 fluid overload from CHF/CKD cont lasix IV at 40 BID stric I&Os daily weights fluid restriction salt restriction echo for cardiac assessment in the setting of SOB, JVD, peripheral edema and CXR with congestive changes monitor urine output magnesium level Anemia poss due to CKD basic work up with iron profile, ferritin, retic count stool occult blood Polysubstance abuse [facility] protocol thiamine, folate, MTVs ativan 2mg Q4h utox FEN salt controlled diet low fat diet DVT SCDs Visit type - Emergency Visit Emergency Visit: Yes ED Registration Date: 02/20/19 Care time: The patient presented to the Emergency Department on the above date and was hospitalized for further evaluation of their emergent condition. - New Patient This patient is new to me today: Yes Date on this admission: 02/20/19 - Critical Care Critical Care patient: No ATTENDING PHYSICIAN STATEMENT I saw and evaluated the patient. I reviewed the resident's note and discussed the case with the resident. I agree with the resident's findings and plan as documented. SUBJECTIVE: OBJECTIVE: ASSESSMENT AND PLAN:
[2019-02-20 06:05] LABS: EPI CELLS 0.2 /HPF (0-5/HPF); HYALINE CASTS 1 /lpf (0-8); URINE APPEARANCE CLEAR; URINE BACTERIA 0.7 /hpf (NEGATIVE); URINE BILIRUBIN NEGATIVE (NEGATIVE); URINE COLOR YELLOW; URINE GLUCOSE (UA) NEGATIVE (NEGATIVE); URINE KETONE NEGATIVE (NEGATIVE); URINE LEUK ESTERASE NEGATIVE (NEGATIVE); URINE NITRITE NEGATIVE (NEGATIVE); URINE PROTEIN 3+ (NEGATIVE); URINE RBC 3 /hpf (0-4); URINE UROBILINOGEN 0.2 mg/dL (0.2-1.0); URINE WBC 0 /hpf (0-5)
[2019-02-20] MEDS: FUROSEMIDE 40 MG/4 ML INJECTABLE VIAL IVPUSH SCH ×2 (06:05→13:34)
[2019-02-20 06:57] LABS: METHADONE, UR NEGATIVE ng/ml (CUTOFF=300); OPIATES, URI NEGATIVE ng/ml (CUTOFF=300); PHENCYCLIDINE,URINE NEGATIVE ng/ml (CUTOFF=25); URINE AMPHETAMINES NEGATIVE ng/ml (CUTOFF=500); URINE BARBITURATES NEGATIVE ng/ml (CUTOFF=200); URINE BENZODIAZEPINES NEGATIVE ng/ml (CUTOFF=200)
[2019-02-20 06:59] LABS: COCAINE, UR POSITIVE ng/ml (CUTOFF=300)
[2019-02-20 08:33] LABS: BASO % 1.1 % (0-2.0); EOS % 2.1 % (0-4.5); HEMATOCRIT 29.6 % (35.4-49); HEMOGLOBIN 9.2 GM/dL (11.7-16.9); LYMPH % 14.4 % (8-40); MCH 23.2 pg (25.7-33.7); MEAN CELL VOLUME 74.8 fl (80-96); MEAN PLT VOLUME 8.4 fl (7.5-11.1); MONO % 7.9 % (3.8-10.2); NEUT % 74.5 % (42.8-82.8); PLATELET COUNT 232 K/MM3 (134-434); RBC 3.96 M/mm3 (4.00-5.60); RDW 18.3 % (11.9-15.9); RETICULOCYTES 1.52 % (0.5-1.5); WHITE BLOOD COUNT 7.1 K/mm3 (4.0-10.0)
[2019-02-20 09:16] LABS: ALBUMIN 3.2 g/dl (3.4-5.0); BILIRUBIN,TOTAL 0.3 mg/dL (0.2-1); CALCIUM 8.3 mg/dL (8.5-10.1); MAGNESIUM 2.3 mg/dL (1.8-2.4); PHOSPHOROUS 4.2 mg/dL (2.5-4.9); POTASSIUM 5.1 mmol/L (3.5-5.1); TOT PROT 7.1 g/dl (6.4-8.2)
--- NOTE | 2019-02-20 09:21 | EKG ---
Test Reason : Blood Pressure : / mmHG Vent. Rate : 074 BPM Atrial Rate : 074 BPM P-R Int : 170 ms QRS Dur : 118 ms QT Int : 446 ms P-R-T Axes : 076 -20 113 degrees QTc Int : 495 ms NORMAL SINUS RHYTHM POSSIBLE LEFT ATRIAL ENLARGEMENT NON-SPECIFIC INTRA-VENTRICULAR CONDUCTION DELAY NONSPECIFIC T WAVE ABNORMALITY PROLONGED QT ABNORMAL ECG WHEN COMPARED WITH ECG OF 17-FEB-2019 03:36, NO SIGNIFICANT CHANGE WAS FOUND Confirmed by MD Shiva, Jeromy ([id number]) on 02/20/2019 9:21:15 AM Referred By: Confirmed By:Jreomy Shannon MD
--- NOTE | 2019-02-20 10:58 | ECHO ---
Version: 1 Name: MAGALY BACK Exam: Adult Echocardiogram Study Date: 02/20/2019, 9:28 AM Age: 53 Years MMode/2D Measurements & Calculations IVSd: 0.96 cm LVIDs: 4.5 cm LVIDd: 5.5 cm LVPWd: 1.34 cm LAV (MOD-bp): 102.0 ml LVOT diam: 2.20 cm Ao root diam: 2.7 cm LA dimension: 4.8 cm Doppler Measurements & Calculations MV E max oj: 96.7 cm/sec Med E/e': 21.0 MV A max oj: 42.9 cm/sec Med Peak E' Oj: 4.6 cm/sec MV E/A: 2.25 Lat E/e': 15.8 Lat Peak E' Oj: 6.1 cm/sec MR max P.3 mmHg Ao max P.9 mmHg Ao V2 max: 121.4 cm/sec PI end-d oj: 143.3 cm/sec TR max oj: 318.3 cm/sec TR max P.7 mmHg Left Ventricle The left ventricle is normal in size. Ejection Fraction = 15%. The transmitral spectral Doppler flow pattern is suggestive of restrictive physiology. There is severe global hypokinesis of the left ventricle. Right Ventricle The right ventricle is normal in size and function. Atria The left atrium is moderately dilated. Right atrial size is normal. Mitral Valve There is mild mitral annular calcification. There is moderate mitral regurgitation. Tricuspid Valve The tricuspid valve is normal. There is mild tricuspid regurgitation. Aortic Valve The aortic valve is normal in structure and function. Pulmonic Valve The pulmonic valve is not well seen, but is grossly normal. Mild pulmonic valvular regurgitation. Great Vessels The aortic root is normal size. Normal aortic arch, descending and ascending aorta. Pericardium/Pleura There is no pericardial effusion. Summary Statements The left ventricle is normal in size. Ejection Fraction = 15%. There is severe global hypokinesis of the left ventricle. The transmitral spectral Doppler flow pattern is suggestive of restrictive physiology. The right ventricle is normal in size and function. The left atrium is moderately dilated. Right atrial size is normal. There is mild mitral annular calcification. There is moderate mitral regurgitation. The tricuspid valve is normal. There is mild tricuspid regurgitation. The aortic valve is normal in structure and function. The pulmonic valve is not well seen, but is grossly normal. Mild pulmonic valvular regurgitation. The aortic root is normal size. Normal aortic arch, descending and ascending aorta There is no pericardial effusion. Ted Hartemberg 02/20/2019, 10:58 AM Ordering Physician: KATE VILLEGAS Referring Physician: KATE VILLEGAS Performed By: Mary Broderick
--- NOTE | 2019-02-20 11:04 | CON.CARD ---
Consult Consult Specialty:: Cardiology Referred by:: Hospitalist Reason for Consultation:: Cardiac evaluation - History of Present Illness Chief Complaint: SOB History of Present Illness: Patient is a 53 year old male with underlying history of CKD, HTN, DM, bronchial asthma and substance abuse (Cocaine, marijuana and ETOH) who presented from [facility] for worsening shortness of breath and bilateral lower extremity swelling. He complains of pain in both feet. He denies chest pain or palpitations. He denies paroxysmal nocturnal dypsnea or orthopnea. He denies fever or chills. He denies nausea, vomiting, diarrhea or abdominal pain. He denies headache or lightheadedness. He has been noncompliant with medications and has not seen a Chemical Equipment Sales Engineer. 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: Peripheral Neuropathy Cardio/Vascular: Yes: HTN, Hyperlipdemia, Other (peripheral vascular disease) Pulmonary: Yes: Asthma Psych: Yes: Bipolar, Schizophrenia Endocrine: Yes: Diabetes Mellitus (Toe) - Past Surgical History Past Surgical History: Yes: Amputation (L 5 digits, R 5th digit) - Alcohol/Substance Use Hx Alcohol Use: Yes History of Substance Use: reports: Cocaine, Marijuana Date of Last Use: 02/13/19 - Smoking History Smoking history: Unknown if ever smoked Have you smoked in the past 12 months: No Aproximately how many cigarettes per day: 10 Home Medications - Allergies Allergies/Adverse Reactions: Allergies Allergy/AdvReac Type Severity Reaction Status Date / Time Pork/Porcine Containing Allergy Intermediate Itching Verified 02/20/19 01:28 Products acetaminophen [From Tylenol] Allergy Mild Itching Verified 02/20/19 01:28 Pasta Allergy Intermediate Itching Uncoded 02/20/19 01:28 - Home Medications Home Medications: Ambulatory Orders Atorvastatin Ca [Lipitor] 10 mg PO HS 03/31/16 Carvedilol [Coreg -] 12.5 mg PO BID 02/14/19 Nifedipine ER [Procardia Xl -] 30 mg PO BID 02/14/19 Insulin Glargine,Hum.rec.anlog [Basaglar Kwikpen U-100] 20 units SQ HS 02/20/19 Insulin Sliding Scale [Novolog Vial Sliding Scale -] 0 units SQ ACHS 02/20/19 Family Medical History Family History: Unable to Obtain Review of Systems - Review of Systems Constitutional: denies: Chills, Fever Cardiovascular: reports: Shortness of Breath. denies: Chest Pain, Palpitations Respiratory: reports: SOB, SOB on Exertion. denies: Cough, Hemoptysis, Orthopnea, PND, Wheezing Gastrointestinal: denies: Abdominal Pain, Constipation, Diarrhea, Melena, Nausea , Rectal Bleeding Genitourinary: denies: Dysuria, Hematuria Musculoskeletal: reports: Back Pain, Joint Pain Neurological: denies: Dizziness, Headache, Seizure, Syncope Vital Signs: Vital Signs Temperature 97.8 F 02/20/19 09:15 Pulse Rate 85 02/20/19 09:15 Respiratory Rate 18 02/20/19 09:15 Blood Pressure 139/70 02/20/19 09:15 O2 Sat by Pulse Oximetry (%) 99 02/20/19 09:15 Eyes: Yes: PERRL HENT: Yes: Atraumatic Neck: Yes: Supple Respiratory: Yes: Diminished Gastrointestinal: Yes: Normal Bowel Sounds, Soft. No: Tenderness Cardiovascular: Yes: Regular Rate and Rhythm JVD: No PMI: Non-Displaced Heart Sounds: Yes: S1, S2 Murmur: Yes: Systolic Murmur, Grade 1 Edema: Yes Edema: LLE: Trace, RLE: Trace - Other Data Labs, Other Data: CBC, BMP 02/20/19 08:09 02/20/19 08:09 INR, PTT INR 1.17 (0.83-1.09) H 02/20/19 04:00 Troponin, BNP 02/20/19 02/20/19 02/20/19 02:45 02:45 08:09 Troponin I 0.03 0.02 B-Natriuretic Peptide Cancelled 18968.1 H Laboratory Results - last 24 hr 02/20/19 02/20/19 02/20/19 02:45 04:00 04:00 WBC 7.8 RBC 3.98 L Hgb 9.2 L Hct 30.3 L MCV 76.2 L MCH 23.0 L MCHC 30.2 L RDW 18.3 H Plt Count 242 MPV 8.7 Absolute Neuts (auto) 5.7 Neutrophils % 72.5 Lymphocytes % 15.3 Monocytes % 8.7 Eosinophils % 2.2 Basophils % 1.3 Nucleated RBC % 0 Retic Count PT with INR INR PTT (Actin FS) 38.4 H Sodium 144 Potassium 5.1 Chloride 117 H Carbon Dioxide 21 Anion Gap 5 L BUN 51.3 H Creatinine 2.9 H Est GFR (CKD-EPI)AfAm 27.18 Est GFR (CKD-EPI)NonAf 23.45 POC Glucometer Random Glucose 89 Calcium 8.1 L Phosphorus Magnesium Iron TIBC Iron Saturation Unsaturated IBC Ferritin Total Bilirubin 0.2 AST 13 L ALT 23 Alkaline Phosphatase 92 Troponin I 0.03 B-Natriuretic Peptide 05991.1 H Total Protein 6.8 Albumin 2.9 L Triglycerides Cholesterol Total LDL Cholesterol HDL Cholesterol TSH Urine Color Urine Appearance Urine pH Ur Specific [place] Urine Protein Urine Glucose (UA) Urine Ketones Urine Blood Urine Nitrite Urine Bilirubin Urine Urobilinogen Ur Leukocyte Esterase Urine WBC (Auto) Urine RBC (Auto) Urine Casts (Auto) U Epithel Cells (Auto) Urine Bacteria (Auto) Opiates Screen Methadone Screen Barbiturate Screen Phencyclidine Screen Ur Amphetamines Screen MDMA (Ecstasy) Screen Benzodiazepines Screen Cocaine Screen U Marijuana (THC) Screen 02/20/19 02/20/19 02/20/19 04:00 05:40 06:23 WBC RBC Hgb Hct MCV MCH MCHC RDW Plt Count MPV Absolute Neuts (auto) Neutrophils % Lymphocytes % Monocytes % Eosinophils % Basophils % Nucleated RBC % Retic Count PT with INR 13.80 H INR 1.17 H PTT (Actin FS) Sodium Potassium Chloride Carbon Dioxide Anion Gap BUN Creatinine Est GFR (CKD-EPI)AfAm Est GFR (CKD-EPI)NonAf POC Glucometer 140 Random Glucose Calcium Phosphorus Magnesium Iron TIBC Iron Saturation Unsaturated IBC Ferritin Total Bilirubin AST ALT Alkaline Phosphatase Troponin I B-Natriuretic Peptide Total Protein Albumin Triglycerides Cholesterol Total LDL Cholesterol HDL Cholesterol TSH Urine Color Yellow Urine Appearance Clear Urine pH 5.0 Ur Specific [place] 1.013 Urine Protein 3+ H Urine Glucose (UA) Negative Urine Ketones Negative Urine Blood Negative Urine Nitrite Negative Urine Bilirubin Negative Urine Urobilinogen 0.2 Ur Leukocyte Esterase Negative Urine WBC (Auto) 0 Urine RBC (Auto) 3 Urine Casts (Auto) 1 U Epithel Cells (Auto) 0.2 Urine Bacteria (Auto) 0.7 Opiates Screen Methadone Screen Barbiturate Screen Phencyclidine Screen Ur Amphetamines Screen MDMA (Ecstasy) Screen Benzodiazepines Screen Cocaine Screen U Marijuana (THC) Screen 02/20/19 02/20/19 02/20/19 06:27 08:09 08:09 WBC 7.1 RBC 3.96 L Hgb 9.2 L Hct 29.6 L MCV 74.8 L MCH 23.2 L MCHC 31.0 L RDW 18.3 H Plt Count 232 MPV 8.4 Absolute Neuts (auto) 5.3 Neutrophils % 74.5 Lymphocytes % 14.4 Monocytes % 7.9 Eosinophils % 2.1 Basophils % 1.1 Nucleated RBC % 0 Retic Count 1.52 H PT with INR INR PTT (Actin FS) Sodium 142 Potassium 5.1 Chloride 114 H Carbon Dioxide 22 Anion Gap 5 L BUN 52.0 H Creatinine 3.0 H Est GFR (CKD-EPI)AfAm 26.09 Est GFR (CKD-EPI)NonAf 22.51 POC Glucometer Random Glucose 168 H Calcium 8.3 L Phosphorus 4.2 Magnesium 2.3 Iron TIBC Iron Saturation Unsaturated IBC Ferritin Total Bilirubin 0.3 AST 17 ALT 25 Alkaline Phosphatase 88 Troponin I B-Natriuretic Peptide Total Protein 7.1 Albumin 3.2 L Triglycerides 51 Cholesterol 96 Total LDL Cholesterol 50 HDL Cholesterol 41 TSH 2.28 Urine Color Urine Appearance Urine pH Ur Specific [place] Urine Protein Urine Glucose (UA) Urine Ketones Urine Blood Urine Nitrite Urine Bilirubin Urine Urobilinogen Ur Leukocyte Esterase Urine WBC (Auto) Urine RBC (Auto) Urine Casts (Auto) U Epithel Cells (Auto) Urine Bacteria (Auto) Opiates Screen Negative Methadone Screen Negative Barbiturate Screen Negative Phencyclidine Screen Negative Ur Amphetamines Screen Negative MDMA (Ecstasy) Screen Negative Benzodiazepines Screen Negative Cocaine Screen Positive A* U Marijuana (THC) Screen Negative 02/20/19 08:09 WBC RBC Hgb Hct MCV MCH MCHC RDW Plt Count MPV Absolute Neuts (auto) Neutrophils % Lymphocytes % Monocytes % Eosinophils % Basophils % Nucleated RBC % Retic Count PT with INR INR PTT (Actin FS) Sodium Potassium Chloride Carbon Dioxide Anion Gap BUN Creatinine Est GFR (CKD-EPI)AfAm Est GFR (CKD-EPI)NonAf POC Glucometer Random Glucose Calcium Phosphorus Magnesium Iron 22 L TIBC 360 Iron Saturation 6 L Unsaturated IBC 338 H Ferritin 30.8 Total Bilirubin AST ALT Alkaline Phosphatase Troponin I 0.02 B-Natriuretic Peptide Total Protein Albumin Triglycerides Cholesterol Total LDL Cholesterol HDL Cholesterol TSH Urine Color Urine Appearance Urine pH Ur Specific [place] Urine Protein Urine Glucose (UA) Urine Ketones Urine Blood Urine Nitrite Urine Bilirubin Urine Urobilinogen Ur Leukocyte Esterase Urine WBC (Auto) Urine RBC (Auto) Urine Casts (Auto) U Epithel Cells (Auto) Urine Bacteria (Auto) Opiates Screen Methadone Screen Barbiturate Screen Phencyclidine Screen Ur Amphetamines Screen MDMA (Ecstasy) Screen Benzodiazepines Screen Cocaine Screen U Marijuana (THC) Screen NSR, nonspecific T abnormality, nonspecific IVCD Echo: Report Reviewed (Severe LV systolic dysfunction estimated LVEF 15%, global hypokinesia, moderate MR) Imaging - Results Chest X-ray: Report Reviewed (Pulmonary and pleural finding) Ultrasound: Report Reviewed (No DVT) Problem List - Problems (1) Dilated cardiomyopathy Code(s): I42.0 - DILATED CARDIOMYOPATHY (2) NYHA class 3 heart failure with reduced ejection fraction Code(s): I50.20 - UNSPECIFIED SYSTOLIC (CONGESTIVE) HEART FAILURE (3) Elevated brain natriuretic peptide (BNP) level Code(s): R79.89 - OTHER SPECIFIED ABNORMAL FINDINGS OF BLOOD CHEMISTRY (4) Renal failure Code(s): N19 - UNSPECIFIED KIDNEY FAILURE Qualifiers: Renal failure chronicity: acute on chronic Acute renal failure type: unspecified Chronic kidney disease stage: unspecified stage Qualified Code(s ): N17.9 - Acute kidney failure, unspecified; N18.9 - Chronic kidney disease, unspecified (5) Shortness of breath Code(s): R06.02 - SHORTNESS OF BREATH (6) Alcohol dependence Code(s): F10.20 - ALCOHOL DEPENDENCE, UNCOMPLICATED (7) Cocaine dependence Code(s): F14.20 - COCAINE DEPENDENCE, UNCOMPLICATED (8) Diabetes mellitus, type II, insulin dependent Code(s): E11.9 - TYPE 2 DIABETES MELLITUS WITHOUT COMPLICATIONS; Z79.4 - [facility] (CURRENT) USE OF INSULIN (9) Hypercholesteremia Code(s): E78.0 - PURE HYPERCHOLESTEROLEMIA * DO NOT USE * (10) Hypertension Code(s): I10 - ESSENTIAL (PRIMARY) HYPERTENSION Qualifiers: Hypertension type: essential hypertension Qualified Code(s): I10 - Essential (primary) hypertension (11) PVD (peripheral vascular disease) Code(s): I73.9 - PERIPHERAL VASCULAR DISEASE, UNSPECIFIED (12) Amputated toe of left foot Code(s): Z89.422 - ACQUIRED ABSENCE OF OTHER LEFT TOE(S) Assessment/Plan 1. Clinical presentation c/w class II-III NYHA classification heart failure in the presence of severe LV systolic/diastolic dysfunction (low LVEF) and dilated cardiomyopathy 2. HTN 3. Hypercholesterolemia 4. DM 5. Poly-substance abuse 6. Noncompliance 7. Acute on CKD PLAN: 1. Continue Carvedilol 12.5 mg BID (Avoid pure beta dada in view of cocaine use) 2. Add Hydralazine and Imdur as tolerated. ACEI or ARB may be difficult to use in view of CKD and hyperkalemia. Other option is to use Entresto but for same reason (CKD and hyperkalemia in addition to compliance issue), it might be difficult to use 3. Echocardiography report was noted and reviewed 4. Add ASA if not contraindicated 5. Diuretics (IV Lasix) and monitor renal function and electrolytes 6. Eventual use of Spironolactone if K stabilizes 7. Further evaluation including nuclear MPI and cardiac catheterization if patient is compliant with follow up and when he is euvolemic. Prophylactic ICD after 90 days if LVEF remains below 35% may be considered if patient is compliant with medical care. Further plans are to follow Chandler Ramey MD
[2019-02-20] MEDS: THIAMINE HCL 100 MG TABLET (FP) PO SCH (11:23)
[2019-02-20] MEDS: MULTIVITAMINS (DAILY MVI) TABLET (FP) PO SCH (11:23)
[2019-02-20] MEDS: FOLIC ACID 1 MG TABLET (FP) PO SCH (11:23)
[2019-02-20] MEDS: INSULIN SLIDING SCALE (NOVOLOG) 1 VIAL SQ SCH ×3 (11:34→22:41)
[2019-02-20] MEDS: ASPIRIN COATED 81 MG TABLET.EC PO SCH (11:59)
[2019-02-20] MEDS: hydrALAZINE HCL 25 MG TABLET (FP) PO SCH ×2 (11:59→22:40)
[2019-02-20] MEDS: ISOSORBIDE MONONITRATE 30 MG TAB.SR.24H (FP) PO SCH (11:59)
[2019-02-20 12:23] VITALS: BMI 34.7
--- NOTE | 2019-02-20 14:05 | PN ---
Teaching Attending Note Name of Resident: Suzy Catalino ATTENDING PHYSICIAN STATEMENT I saw and evaluated the patient. I reviewed the resident's note and discussed the case with the resident. I agree with the resident's findings and plan as documented. SUBJECTIVE: No fever or chills. SOB is better. has pain in his feet. No CP . no diarrhea , no cough OBJECTIVE: NAD , awake, flat affect. poor historian, limited eye contact. CV: RRR, no MRG , + JVD Lungs: decreased breath sounds at bases , but no crackles Ext : 1+ pitting edema on legs . No erythema, L little toes amputation . L toes amputations . tenderness to touch in feet even to light touch of the skin ASSESSMENT AND PLAN: 53 y/o man with h/o PSA ( cocaine, marijuana, ETOH, ) , CHF, DM, HTN, toes amputations, DM, diabetic neuropathy, CKD, Treatment for Gonorrhea, PVD, depression, previous suicidal attempt, and other problems who presented from [facility] rehab ( 02/15-02/19) with SOB . 1- Acute on chronic systolic and diastolic CHF exacerbation: - Echo reviewed. EKG with Sinus rhythm, TWI in lateral leads, L axis. long QTC 495. - Not sure if CHF is from drugs /ETOH or from ischemic heart DZ. N o sure of previous w/u ( cath , ..etc) - cont IV lasix - weight and I&O - Appreciate card help, cont HZN and Imdure - cont coreg - no signs of ACS - Will d/w card the need for Life Vest - will d/w card the need fro R and L heart cath 2- H/o PSA: - Cocaine, monitor - ETOH. last dose a week ago. Dc ativan IV. Monitor - Marijuana : monitor 3- DM: SSI for now. at dc he should not be using metformin due to his CHF and CKD 4- Microcytic anemia: No signs for active bleed. has signs of iron def , either due to nutritional deficiency or chronic slow GI bleed - will start iron supp at dc - GI f/u as outpt fro EGD and colonoscopy 5- HTN: Now on coreg, HZN, and imdur. hold procardia for now and uptitrate other meds 6- DVT Px: add heaprin
--- NOTE | 2019-02-20 14:49 | PN ---
Physical Exam: SUBJECTIVE: Patient seen and examined in the morning. Patient had no acute events overnight. Patient complains of difficulty breathing and pain in his legs , but no chest pain, no pleuritic pain, no fever, no chills, no cough. OBJECTIVE: Vital Signs Period Temp Pulse Resp BP Sys/Baez Pulse Ox Last 24 Hr 97.6 F-97.9 F 76-89 18-22 130-154/70-89 95-100 GENERAL: The patient is awake, alert, and fully oriented. Patient continued to drink coffee the during exam, but was otherwise cooperative. HEAD: Normal with no signs of trauma. EYES: PERRL, extraocular movements intact, sclera anicteric, conjunctiva clear. NECK: Trachea midline, full range of motion, supple. LUNGS: Breath sounds equal, clear to auscultation bilaterally no crackles. HEART: Regular rate and rhythm, S1, S2 without murmur, rub or gallop. ABDOMEN: Soft, nontender, nondistended, normoactive bowel sounds, no guarding, no rebound, no hepatomegaly. EXTREMITIES: 2+ pulses in upper and lower extremity. Patient has fifth toe amputated on right foot, and all 5 digits amputated on left foot. NEUROLOGICAL: Cranial nerves II through XII grossly intact. Normal speech Laboratory Results - last 24 hr CBC, BMP 02/20/19 08:09 02/20/19 08:09 Active Medications Generic Name Dose Route Start Last Admin Trade Name Freq PRN Reason Stop Dose Admin Aspirin 81 mg 02/20/19 11:30 02/20/19 11:59 Ecotrin - PO 81 mg DAILY NUBIA Administration Folic Acid 1 mg 02/20/19 10:00 02/20/19 11:23 Folic Acid - PO 1 mg DAILY NUBIA Administration Furosemide 40 mg 02/20/19 06:00 02/20/19 13:34 Lasix Injection - IVPUSH 40 mg BID@0600,1400 NUBIA Administration Hydralazine HCl 25 mg 02/20/19 11:30 02/20/19 11:59 Apresoline - PO 25 mg BID NUBIA Administration Insulin Aspart 1 vial 02/20/19 11:00 02/20/19 11:34 Novolog Vial Sliding Scale - SQ Not Given ACHS [facility] Protocol Isosorbide Mononitrate 30 mg 02/20/19 11:30 02/20/19 11:59 Imdur - PO 30 mg DAILY NUBIA Administration Multivitamins/Minerals/Vitamin C 1 tab 02/20/19 10:00 02/20/19 11:23 Tab-A-Vit - PO 1 tab DAILY NUBIA Administration Thiamine HCl 100 mg 02/20/19 10:00 02/20/19 11:23 Vitamin B1 - PO 100 mg DAILY NUBIA Administration ASSESSMENT/PLAN: 53M with PMHx of CHF, CKD, HTN, DM II, Asthma, Cocaine and EtOH abuse who presents from [facility] for continued worsening of his shortness of breath due to CHF exacerbation. 1) CHF exacerbation -Echo completed today. EF= 15%, severe global hypokinesis of the LV, transmitral spectral Doppler flow is suggestive of restrictive physiology. RV is normal in size and function. LA normal -Chest X-ray shows vascular congestion, and possible right lung pleural effusion. -Strict I&O -Carvedilol 12.5 mg PO BID -Hydralazine 25 mg PO BID -Mononitrate 30 mg PO Daily -Lasix 40 mg IV BID -ASA 81 mg PO Daily -Fluid restriction to 1.5L a day. -Cardiology consulted, appreciate Rec's 2) Acute on Chronic CKD -Patient's creatinine is elevated above past baseline of 2 to 3.0. -F/U Renal Ultrasound 3)DM II -HbA1c of 9.6% -Insulin Sliding Scale 4)Poly-Substance Abuse -Patient's last drink was >5 days ago, no detox protocol was started at [facility] during his stay there. Will not start Librium protocol as he doesn't show symptoms of withdrawal F: No fluids E: Monitor BMP N: Sodium restricted, diabetic diet DVT: SCD Dispo: Admitted to Telemetry Visit type - Emergency Visit Emergency Visit: Yes ED Registration Date: 02/20/19 Care time: The patient presented to the Emergency Department on the above date and was hospitalized for further evaluation of their emergent condition. - New Patient This patient is new to me today: Yes Date on this admission: 02/20/19 - Critical Care Critical Care patient: No ATTENDING PHYSICIAN STATEMENT I saw and evaluated the patient. I reviewed the resident's note and discussed the case with the resident. I agree with the resident's findings and plan as documented. SUBJECTIVE: OBJECTIVE: ASSESSMENT AND PLAN:
[2019-02-20] MEDS: HEPARIN NA (PORCINE) 5,000 UNITS/ML 1ML VIAL SQ SCH (22:40)
[2019-02-20] MEDS: CARVEDILOL 12.5 MG TABLET (FP) PO SCH (22:40)
[2019-02-21] MEDS: INSULIN SLIDING SCALE (NOVOLOG) 1 VIAL SQ SCH ×2 (06:10→11:34)
[2019-02-21] MEDS: HEPARIN NA (PORCINE) 5,000 UNITS/ML 1ML VIAL SQ SCH (06:15)
[2019-02-21] MEDS: FUROSEMIDE 40 MG/4 ML INJECTABLE VIAL IVPUSH SCH (06:16)
[2019-02-21 07:12] LABS: BASO % 1.1 % (0-2.0); EOS % 2.1 % (0-4.5); HEMOGLOBIN 8.7 GM/dL (11.7-16.9); LYMPH % 19.4 % (8-40); MCH 23.5 pg (25.7-33.7); MCHC 32.2 g/dl (32.0-35.9); MEAN PLT VOLUME 8.7 fl (7.5-11.1); MONO % 8.9 % (3.8-10.2); NEUT % 68.5 % (42.8-82.8); PLATELET COUNT 219 K/MM3 (134-434); RDW 17.9 % (11.9-15.9); WHITE BLOOD COUNT 5.3 K/mm3 (4.0-10.0)
[2019-02-21 07:34] LABS: ALBUMIN 2.8 g/dl (3.4-5.0); BILIRUBIN,TOTAL 0.4 mg/dL (0.2-1); BLOOD UREA NITROGEN 54.9 mg/dL (7-18); CALCIUM 7.8 mg/dL (8.5-10.1); CREATININE 3.1 mg/dL (0.55-1.3); POTASSIUM 5.1 mmol/L (3.5-5.1); TOT PROT 6.5 g/dl (6.4-8.2)
--- NOTE | 2019-02-21 09:18 | PN ---
Teaching Attending Note Name of Resident: Jade Winston ATTENDING PHYSICIAN STATEMENT I saw and evaluated the patient. I reviewed the resident's note and discussed the case with the resident. I agree with the resident's findings and plan as documented. SUBJECTIVE: Patient has no complains wants to go to rehab. Vital Signs Temperature 98.2 F 02/21/19 06:07 Pulse Rate 78 02/21/19 06:07 Respiratory Rate 18 02/21/19 08:08 Blood Pressure 153/96 02/21/19 06:07 O2 Sat by Pulse Oximetry (%) 96 02/21/19 08:08 GENERAL: The patient is awake, alert, and fully oriented, in no acute distress. HEAD: Normal with no signs of trauma. EYES: PERRL, extraocular movements intact, sclera anicteric, conjunctiva clear. ENT: Ears normal, oropharynx clear without exudates, moist mucous membranes. NECK: Trachea midline, full range of motion, supple. LUNGS: Breath sounds equal, clear to auscultation bilaterally, no wheezes, no crackles, no accessory muscle use. HEART: Regular rate and rhythm, S1, S2 without murmur, rub or gallop. ABDOMEN: Soft, nontender, nondistended, normoactive bowel sounds, no guarding, no rebound, no hepatosplenomegaly, no masses. EXTREMITIES: 1+ pitting edema on legs . No erythema, L little toes amputated .tenderness to touch in feet NEUROLOGICAL: Cranial nerves II through XII grossly intact. Normal speech, gait not observed. PSYCH: flat affect SKIN: Warm, dry, normal turgor, no rashes or lesions noted Ext : CBCD WBC 5.3 K/mm3 (4.0-10.0) 02/21/19 05:55 RBC 3.70 M/mm3 (4.00-5.60) L 02/21/19 05:55 Hgb 8.7 GM/dL (11.7-16.9) L 02/21/19 05:55 Hct 27.0 % (35.4-49) L 02/21/19 05:55 MCV 73.0 fl (80-96) L 02/21/19 05:55 MCHC 32.2 g/dl (32.0-35.9) 02/21/19 05:55 RDW 17.9 % (11.9-15.9) H 02/21/19 05:55 Plt Count 219 K/MM3 (134-434) 02/21/19 05:55 MPV 8.7 fl (7.5-11.1) 02/21/19 05:55 CMP Sodium 139 mmol/L (136-145) 02/21/19 05:55 Potassium 5.1 mmol/L (3.5-5.1) 02/21/19 05:55 Chloride 112 mmol/L (98-107) H 02/21/19 05:55 Carbon Dioxide 22 mmol/L (21-32) 02/21/19 05:55 Anion Gap 5 MMOL/L (8-16) L 02/21/19 05:55 BUN 54.9 mg/dL (7-18) H 02/21/19 05:55 Creatinine 3.1 mg/dL (0.55-1.3) H 02/21/19 05:55 Random Glucose 147 mg/dL (74-106) H 02/21/19 05:55 Calcium 7.8 mg/dL (8.5-10.1) L 02/21/19 05:55 Total Bilirubin 0.4 mg/dL (0.2-1) 02/21/19 05:55 AST 17 U/L (15-37) 02/21/19 05:55 ALT 26 U/L (13-61) 02/21/19 05:55 Alkaline Phosphatase 83 U/L (45-117) 02/21/19 05:55 Total Protein 6.5 g/dl (6.4-8.2) 02/21/19 05:55 Albumin 2.8 g/dl (3.4-5.0) L 02/21/19 05:55 CARDIAC ENZYMES Troponin I 0.02 ng/ml (0.00-0.05) 02/20/19 08:09 Current Medications Generic Name Dose Route Start Last Admin Trade Name Hebert PRN Reason Stop Dose Admin Aspirin 81 mg 02/20/19 11:30 02/20/19 11:59 Ecotrin - PO 81 mg DAILY NUBIA Administration Carvedilol 12.5 mg 02/20/19 22:00 02/20/19 22:40 Coreg - PO 12.5 mg BID NUBIA Administration Folic Acid 1 mg 02/20/19 10:00 02/20/19 11:23 Folic Acid - PO 1 mg DAILY NUBIA Administration Furosemide 40 mg 02/20/19 06:00 02/21/19 06:16 Lasix Injection - IVPUSH 40 mg BID@0600,1400 NUBIA Administration Heparin Sodium (Porcine) 5,000 unit 02/20/19 22:00 02/21/19 06:15 Heparin - SQ Not Given TID NUBIA Hydralazine HCl 25 mg 02/20/19 11:30 02/20/19 22:40 Apresoline - PO 25 mg BID NUBIA Administration Insulin Aspart 1 vial 02/20/19 11:00 02/21/19 06:10 Novolog Vial Sliding Scale - SQ Not Given ACHS [facility] Protocol Isosorbide Mononitrate 30 mg 02/20/19 11:30 02/20/19 11:59 Imdur - PO 30 mg DAILY NUBIA Administration Multivitamins/Minerals/Vitamin C 1 tab 02/20/19 10:00 02/20/19 11:23 Tab-A-Vit - PO 1 tab DAILY NUBIA Administration Thiamine HCl 100 mg 02/20/19 10:00 02/20/19 11:23 Vitamin B1 - PO 100 mg DAILY NUBIA Administration Home Medications Medication Instructions Recorded Atorvastatin Ca [Lipitor] 10 mg PO HS 03/31/16 Carvedilol [Coreg -] 12.5 mg PO BID 02/14/19 Nifedipine ER [Procardia Xl -] 30 mg PO BID 02/14/19 Insulin Glargine,Hum.rec.anlog 20 units SQ HS 02/20/19 [Basaglar Kwikpen U-100] Insulin Sliding Scale [Novolog 0 units SQ ACHS 02/20/19 Vial Sliding Scale -] ASSESSMENT AND PLAN: Patient is a 53 y/o man with h/o PSA ( cocaine, marijuana, ETOH, ) , CHF, DM, HTN, toes amputations, DM, diabetic neuropathy, CKD, Treatment for Gonorrhea, PVD, depression, previous suicidal attempt, presented from [facility] rehab ( -02/19) with SOB . # Acute on chronic systolic and diastolic CHF exacerbation: Echo reviewed, with EJF of 15% , severe global hypokinesis of the left ventricle. Trans-mitral spectral doppler is suggestive of restrictive physiology. EKG with Sinus rhythm , TWI in lateral leads, L axis. long QTC 495. due to cocaine, monitor and avoid pure BB, instead increase the dose of Coreg to 25mg po bid from 12.5mg BID. Further evaluation including nuclear MPI, LifeVest and cardiac catheterization if patient documents compliance with medications and follow-up. Prophylactic ICD after 90 days if LVEF remains below 35% may be considered if patient is compliant with medical care. Follow up with Dr.Toni Burton as an outpatient. # JAYLEN over CKD: with cr. above 2.5 , Not on Spironolactone due to Cr>2.5 and hyperkalemia # H/o Polysubstance abuse: Cocaine, monitor avoid pure BB, instead increase the dose of Coreg to 25mg po bid. # DM: SSI for now. at dc he should not be using metformin due to his CHF and CKD # Microcytic anemia: No signs for active bleed or signs of iron def. either due to nutritional deficiency or chronic slow GI bleed GI f/u as outpt fro EGD and colonoscopy # HTN: Continue coreg, HZN, and imdur. hold procardia as per cardio. DVT Px: add heaprin
[2019-02-21] MEDS: CARVEDILOL 12.5 MG TABLET (FP) PO SCH (09:20)
[2019-02-21] MEDS: hydrALAZINE HCL 25 MG TABLET (FP) PO SCH (09:20)
[2019-02-21] MEDS: ISOSORBIDE MONONITRATE 30 MG TAB.SR.24H (FP) PO SCH (09:20)
[2019-02-21] MEDS: MULTIVITAMINS (DAILY MVI) TABLET (FP) PO SCH (09:20)
[2019-02-21] MEDS: THIAMINE HCL 100 MG TABLET (FP) PO SCH (09:20)
[2019-02-21] MEDS: FOLIC ACID 1 MG TABLET (FP) PO SCH (09:21)
[2019-02-21] MEDS: ASPIRIN COATED 81 MG TABLET.EC PO SCH (09:21)
--- NOTE | 2019-02-21 09:37 | PN ---
Progress Note, Physician History of Present Illness: Shortness of breath, orthopnea, bilateral lower extremity swelling resolving with diuresis and afterload reduction. - Current Medication List Current Medications: Active Medications Aspirin (Ecotrin -) 81 mg PO DAILY [facility] Last Admin: 02/21/19 09:21 Dose: 81 mg Carvedilol (Coreg -) 12.5 mg PO BID [facility] Last Admin: 02/21/19 09:20 Dose: 12.5 mg Folic Acid (Folic Acid -) 1 mg PO DAILY [facility] Last Admin: 02/21/19 09:21 Dose: 1 mg Furosemide (Lasix Injection -) 40 mg IVPUSH BID@0600,1400 [facility] Last Admin: 02/21/19 06:16 Dose: 40 mg Heparin Sodium (Porcine) (Heparin -) 5,000 unit SQ TID [facility] Last Admin: 02/21/19 06:15 Dose: Not Given Hydralazine HCl (Apresoline -) 25 mg PO BID [facility] Last Admin: 02/21/19 09:20 Dose: 25 mg Insulin Aspart (Novolog Vial Sliding Scale -) 1 vial SQ [facility]; Protocol Last Admin: 02/21/19 06:10 Dose: Not Given Isosorbide Mononitrate (Imdur -) 30 mg PO DAILY [facility] Last Admin: 02/21/19 09:20 Dose: 30 mg Multivitamins/Minerals/Vitamin C (Tab-A-Vit -) 1 tab PO DAILY [facility] Last Admin: 02/21/19 09:20 Dose: 1 tab Thiamine HCl (Vitamin B1 -) 100 mg PO DAILY [facility] Last Admin: 02/21/19 09:20 Dose: 100 mg - Objective Vital Signs: Vital Signs Temperature 98.2 F 02/21/19 06:07 Pulse Rate 78 02/21/19 06:07 Respiratory Rate 18 02/21/19 08:08 Blood Pressure 153/96 02/21/19 06:07 O2 Sat by Pulse Oximetry (%) 96 02/21/19 08:08 Constitutional: Yes: No Distress, Calm Neck: Yes: Supple Cardiovascular: Yes: Regular Rate and Rhythm, Gallop (S3 gallop), Murmur (2/6 SM ) Respiratory: Yes: Regular, Diminished Gastrointestinal: Yes: Normal Bowel Sounds, Soft Edema: No Labs: CBC, BMP 02/21/19 05:55 02/21/19 05:55 INR, PTT INR 1.17 (0.83-1.09) H 02/20/19 04:00 - ....Imaging Ultrasound: Report Reviewed (Bilateral pleural effusion R>L) Problem List - Problems (1) Diabetes mellitus, type II, insulin dependent Code(s): E11.9 - TYPE 2 DIABETES MELLITUS WITHOUT COMPLICATIONS; Z79.4 - ALF (CURRENT) USE OF INSULIN (2) Dilated cardiomyopathy Code(s): I42.0 - DILATED CARDIOMYOPATHY (3) Hypertension Code(s): I10 - ESSENTIAL (PRIMARY) HYPERTENSION Qualifiers: Hypertension type: essential hypertension Qualified Code(s): I10 - Essential (primary) hypertension (4) NYHA class 3 heart failure with reduced ejection fraction Code(s): I50.20 - UNSPECIFIED SYSTOLIC (CONGESTIVE) HEART FAILURE (5) Renal failure Code(s): N19 - UNSPECIFIED KIDNEY FAILURE Qualifiers: Renal failure chronicity: acute on chronic Acute renal failure type: unspecified Chronic kidney disease stage: unspecified stage Qualified Code(s ): N17.9 - Acute kidney failure, unspecified; N18.9 - Chronic kidney disease, unspecified (6) Elevated brain natriuretic peptide (BNP) level Code(s): R79.89 - OTHER SPECIFIED ABNORMAL FINDINGS OF BLOOD CHEMISTRY (7) Shortness of breath Code(s): R06.02 - SHORTNESS OF BREATH (8) Alcohol dependence Code(s): F10.20 - ALCOHOL DEPENDENCE, UNCOMPLICATED (9) Cocaine dependence Code(s): F14.20 - COCAINE DEPENDENCE, UNCOMPLICATED (10) Substance-induced sleep disorder Code(s): F19.982 - OTH PSYCHOACTIVE SUBSTANCE USE, UNSP W SLEEP DISORDER (11) Hypercholesteremia Code(s): E78.0 - PURE HYPERCHOLESTEROLEMIA * DO NOT USE * (12) PVD (peripheral vascular disease) Code(s): I73.9 - PERIPHERAL VASCULAR DISEASE, UNSPECIFIED Assessment/Plan 02/20/2019 Echo: Normal LV size with severely decreased LVEF 15%, normal RV size and fxn, restrictive physiology, mod LAE, mod MR, mild TR, MS 1. Acute on chronic systolic heart failure (hypertensive vs ischemic vs toxic) 2. HTN 3. Hypercholesterolemia 4. DM 5. Poly-substance abuse (Cocaine, marijuana and ETOH) 6. Noncompliance 7. Acute on CKD PLAN: 1. Increase Carvedilol 25 mg BID (Avoid pure beta dada in view of cocaine use ) 2. Continue Hydralazine 25 bid and Imdur 30 qd as tolerated. ACEI, ARB, Entresto may be difficult to use in view of CKD and hyperkalemia and noncompliance 3. Decrease IV diuresis and monitor diuretic response, renal function and electrolytes 4. Not on Spironolactone due to Cr>2.5 and hyperkalemia 5. Further evaluation including nuclear MPI, LifeVest and cardiac catheterization if patient documents compliance with medications and follow-up and when he is euvolemic. Prophylactic ICD after 90 days if LVEF remains below 35% may be considered if patient is compliant with medical care. 6. Plan of care d/w resident team
[2019-02-21 09:50] VITALS: BP 159/103; PULSE 73; TEMP 98.8
--- NOTE | 2019-02-21 10:55 | PN ---
Physical Exam: SUBJECTIVE: Patient seen and examined in the morning. No acute events overnight. Patient still complains of occasional shortness of breath. No fever, no chills, no chest pain, no abdominal pain, no nausea, vomiting, diarrhea. OBJECTIVE: Vital Signs Period Temp Pulse Resp BP Sys/Baez Pulse Ox Last 24 Hr 97.6 F-98.8 F 73-79 18-22 145-164/83-103 95-100 GENERAL: The patient is awake, alert, and fully oriented. Patient continued to drink coffee the during exam, but was otherwise cooperative. HEAD: Normal with no signs of trauma. EYES: PERRL, extraocular movements intact, sclera anicteric, conjunctiva clear. NECK: Trachea midline, full range of motion, supple. LUNGS: Breath sounds equal, clear to auscultation bilaterally no crackles. HEART: Regular rate and rhythm, S1, S2 without murmur, rub or gallop. ABDOMEN: Soft, nontender, nondistended, normoactive bowel sounds, no guarding, no rebound, no hepatomegaly. EXTREMITIES: 2+ pulses in upper and lower extremity. Patient has fifth toe amputated on right foot, and all 5 digits amputated on left foot. NEUROLOGICAL: Cranial nerves II through XII grossly intact. Normal speech Laboratory Results - last 24 hr CBC, BMP 02/21/19 05:55 02/21/19 05:55 Active Medications Generic Name Dose Route Start Last Admin Trade Name Kevinq PRN Reason Stop Dose Admin Aspirin 81 mg 02/20/19 11:30 02/21/19 09:21 Ecotrin - PO 81 mg DAILY [facility] Administration Carvedilol 12.5 mg 02/20/19 22:00 02/21/19 09:20 Coreg - PO 12.5 mg BID [facility] Administration Folic Acid 1 mg 02/20/19 10:00 02/21/19 09:21 Folic Acid - PO 1 mg DAILY [facility] Administration Furosemide 40 mg 02/20/19 06:00 02/21/19 06:16 Lasix Injection - IVPUSH 40 mg BID@0600,1400 [facility] Administration Heparin Sodium (Porcine) 5,000 unit 02/20/19 22:00 02/21/19 06:15 Heparin - SQ Not Given TID [facility] Hydralazine HCl 25 mg 02/20/19 11:30 11/06/19 09:20 Apresoline - PO 25 mg BID [facility] Administration Insulin Aspart 1 vial 02/20/19 11:00 02/21/19 06:10 Novolog Vial Sliding Scale - SQ Not Given [facility] Protocol Isosorbide Mononitrate 30 mg 02/20/19 11:30 02/21/19 09:20 Imdur - PO 30 mg DAILY [facility] Administration Multivitamins/Minerals/Vitamin C 1 tab 02/20/19 10:00 02/21/19 09:20 Tab-A-Vit - PO 1 tab DAILY [facility] Administration Thiamine HCl 100 mg 02/20/19 10:00 02/21/19 09:20 Vitamin B1 - PO 100 mg DAILY [facility] Administration ASSESSMENT/PLAN: 53M with PMHx of CHF, CKD, HTN, DM II, Asthma, Cocaine and EtOH abuse who presents from [facility] for continued worsening of his shortness of breath due to CHF exacerbation. DISCHARGED TODAY 1) CHF exacerbation -Echo completed today. EF= 15%, severe global hypokinesis of the LV, transmitral spectral Doppler flow is suggestive of restrictive physiology. RV is normal in size and function. LA normal -Chest X-ray shows vascular congestion, and possible right lung pleural effusion. -Strict I&O -Carvedilol 12.5 mg PO BID -Hydralazine 25 mg PO BID -Mononitrate 30 mg PO Daily -Lasix 40 mg IV BID -ASA 81 mg PO Daily -Fluid restriction to 1.5L a day. -Patient is currently poor candidate for Life Vest, will need to demonstrate medication compliance and continued follow up with senior c web developer. -Cardiology consulted, appreciate Rec's 2) Acute on Chronic CKD -Patient's creatinine is elevated above past baseline of 2 to 3.0. -F/U Renal Ultrasound 3)DM II -HbA1c of 9.6% -Insulin Sliding Scale 4)Poly-Substance Abuse -Patient's last drink was >5 days ago, no detox protocol was started at [facility] during his stay there. Will not start Librium protocol as he doesn't show symptoms of withdrawal F: No fluids E: Monitor BMP N: Sodium restricted, diabetic diet DVT: SCD Visit type - Emergency Visit Emergency Visit: Yes ED Registration Date: 02/20/19 Care time: The patient presented to the Emergency Department on the above date and was hospitalized for further evaluation of their emergent condition. - New Patient This patient is new to me today: No - Critical Care Critical Care patient: No ATTENDING PHYSICIAN STATEMENT I saw and evaluated the patient. I reviewed the resident's note and discussed the case with the resident. I agree with the resident's findings and plan as documented. SUBJECTIVE: OBJECTIVE: ASSESSMENT AND PLAN:
[2019-02-21] MEDS ORDERED: CARVEDILOL 25 MG TABLET (FP) PO SCH (12:09)
[2019-02-21] MEDS ORDERED: CARVEDILOL 12.5 MG TABLET (FP) PO ONE (12:09)
--- NOTE | 2019-02-21 13:16 | DS ---
Physical Exam: SUBJECTIVE: Patient seen and examined in the morning. No acute events overnight. Patient still complains of occasional shortness of breath. No fever, no chills, no chest pain, no abdominal pain, no nausea, vomiting, diarrhea. OBJECTIVE: Vital Signs Period Temp Pulse Resp BP Sys/Baez Pulse Ox Last 24 Hr 97.7 F-98.8 F 73-79 18-20 145-164/83-103 96-100 PHYSICAL EXAM GENERAL: The patient is awake, alert, and fully oriented. Patient continued to drink coffee the during exam, but was otherwise cooperative. HEAD: Normal with no signs of trauma. EYES: PERRL, extraocular movements intact, sclera anicteric, conjunctiva clear. NECK: Trachea midline, full range of motion, supple. LUNGS: Breath sounds equal, clear to auscultation bilaterally no crackles. HEART: Regular rate and rhythm, S1, S2 without murmur, rub or gallop. ABDOMEN: Soft, nontender, nondistended, normoactive bowel sounds, no guarding, no rebound, no hepatomegaly. EXTREMITIES: 2+ pulses in upper and lower extremity. Patient has fifth toe amputated on right foot, and all 5 digits amputated on left foot. NEUROLOGICAL: Cranial nerves II through XII grossly intact. Normal speech LABS Laboratory Results - last 24 hr CBC, BMP 02/21/19 05:55 02/21/19 05:55 HOSPITAL COURSE: Date of Admission:02/20/19 Date of Discharge: 02/21/19 53M with PMHx of CHF, CKD, HTN, DM II, Asthma, Cocaine and EtOH abuse who presents from [facility] for continued worsening of his shortness of breath due to CHF exacerbation; sent over from the Rehab unit of [facility]. Patient was started on Furosemide 40 [place] [address]. Cardiology was consulted and echocardiogram was completed. Echo showed an Ejection Fraction of 15%. Patient was started on Carvedilol 12.5 mg PO BID, Hydralazine 25 mg PO BID , ASA 81 mg PO BID, ImDur 30 mg PO Daily and discontinued his nifedipine. Patient's eligibility for Life Vest was discussed with cardiology; he is currently not a suitable candidate for Life Vest. If he is able to show compliance to his medication regimen and continue follow up with cardiology he will be re-evaluated for Life Vest. Relevant Imaging Done this stay: Chest X-Ray: Progressive pulmonary and pleural findings. Echo: EF= 15%. Left ventricle is normal in size. Severe global hypokinesis of left ventricle. Spectral doppler is suggestive of restrictive physiology. RV is normal in size and function. LA is moderately dilated, RA is normal in size. Mild Mitral annular calcification, moderate mitral regurgitation. Mild pulmonic valvular regurgitation. Minutes to complete discharge: 35 Discharge Summary Problems reviewed: Yes Reason For Visit: ELEVATED BRAIN NATRIURETIC PEPTIDE (BNP) LEVEL Current Active Problems Amputated toe of left foot (Chronic) Asthma (Chronic) Cocaine abuse (Chronic) Diabetes mellitus, type II, insulin dependent (Chronic) Dilated cardiomyopathy (Chronic) Hypertension (Chronic) Leg pain, bilateral (Chronic) NYHA class 3 heart failure with reduced ejection fraction (Chronic) Renal failure (Chronic) Condition: Good - Instructions Diet, Activity, Other Instructions: You were admitted to the hospital due to worsening shortness of breath. While you were admitted here we did an X-Ray of your lungs which showed that you had some fluid build up in your lungs. We started you on medication to clear up the fluids in lungs. We did an ultrasound of your heart which showed that your congestive heart failure has worsened. You Ejection Fraction is 15%. It is very important to continue following with your afternoon nanny to keep monitoring the condition of your heart. We have started you on these medications for your heart failure: Carvedilol 12.5 mg by mouth, twice a day. Hydralazine 25 mg by mouth, twice a day Isosorbide Mononitrate 30 mg by mouth, once a day. Aspirin 81 mg by mouth, once a day. Furosemide 40 my by mouth, twice a day. We changed your home medication of carvedilol, please stop taking the old coreg dose . We stopped your home medication of Nifedipine. Please stop taking it the home dose Nifedipine . Continue your other home medications. Please follow up with your primary care physician within 1 week. Please follow up with your afternoon nanny within 1 week. Return to the emergency department if you have chest pain, shortness of breath, worsening headache, nausea, vomiting, diarrhea, or worsening of your condition. Referrals: [facility] [place] [Provider Group] - 1 Week Jaspal Burton MD [Staff Physician] - 1 Week Disposition: TRANSFER ACUTE CARE/OTHER HOSP - Home Medications Comprehensive Discharge Medication List: Ambulatory Orders Atorvastatin Ca [Lipitor] 10 mg PO HS 03/31/16 Insulin Glargine,Hum.rec.anlog [Basaglar Kwikpen U-100] 20 units SQ HS 02/20/19 Insulin Sliding Scale [Novolog Vial Sliding Scale -] 0 units SQ ACHS 02/20/19 Aspirin Coated [Ecotrin -] 81 mg PO DAILY #30 tablet.ec 02/21/19 Carvedilol [Coreg -] 12.5 mg PO BID #30 tablet 02/21/19 Folic Acid - 1 mg PO DAILY #30 tablet 02/21/19 Furosemide 40 mg PO BID #60 tablet 02/21/19 Isosorbide Mononitrate [Imdur -] 30 mg PO DAILY #30 tab.sr.24h 02/21/19 Thiamine HCl [B-1] 100 mg PO DAILY #30 tablet 02/21/19 hydrALAZINE HCL [Apresoline -] 25 mg PO BID #60 tablet 02/21/19 This patient is new to me today: No Emergency Visit: Yes ED Registration Date: 02/20/19 Care time: The patient presented to the Emergency Department on the above date and was hospitalized for further evaluation of their emergent condition. Critical Care patient: No - Discharge Referral Referred to [facility] No ATTENDING PHYSICIAN STATEMENT I saw and evaluated the patient. I reviewed the resident's note and discussed the case with the resident. I agree with the resident's findings and plan as documented. SUBJECTIVE: OBJECTIVE: ASSESSMENT AND PLAN:
[2019-02-22] MEDS ORDERED: FUROSEMIDE 40 MG/4 ML INJECTABLE VIAL IVPUSH SCH (10:00)
== END 2019-02-21 13:30 | disposition other institution (70) | DRG 194 ==
LOC: JER 00:55 → JERBED 04:35 → J4W 10:30
PROVIDERS: ADMIT Internal Medicine; ATTEND Internal Medicine
DX: I13.0 Hypertensive heart and chronic kidney disease with heart failure and stage 1 through stage 4 chronic kidney disease, or unspecified chronic kidney disease (principal); E11.22 Type 2 diabetes mellitus with diabetic chronic kidney disease; N17.9 Acute kidney failure, unspecified; I50.43 Acute on chronic combined systolic (congestive) and diastolic (congestive) heart failure; E11.40 Type 2 diabetes mellitus with diabetic neuropathy, unspecified; F14.20 Cocaine dependence, uncomplicated; E11.51 Type 2 diabetes mellitus with diabetic peripheral angiopathy without gangrene; Z79.4 Long term (current) use of insulin; N18.9 Chronic kidney disease, unspecified; D50.9 Iron deficiency anemia, unspecified; D63.1 Anemia in chronic kidney disease; F12.10 Cannabis abuse, uncomplicated; J45.909 Unspecified asthma, uncomplicated; I42.0 Dilated cardiomyopathy; F10.20 Alcohol dependence, uncomplicated; E78.00 Pure hypercholesterolemia, unspecified; Z89.422 Acquired absence of other left toe(s); Z91.14 Patient's other noncompliance with medication regimen; F32.9 Major depressive disorder, single episode, unspecified; Z91.5 Personal history of self-harm; I34.0 Nonrheumatic mitral (valve) insufficiency; I37.1 Nonrheumatic pulmonary valve insufficiency
CPT/HCPCS: 36415; 71046-TC-FY; 76775-TC; 80053; 80061; 80307; 81003; 82728; 82962; 83036; 83540; 83550; 83721; 83735; 83880; 84100; 84443; 84484; 85025; 85044; 85610; 85730; 93005; 93010; 93306-TC; 93970-TC; 99285-25; J1644

== ENCOUNTER 2019-02-21 13:53 | Inpatient (IN) | payer OTHER ==
[2019-02-21 14:28] VITALS: BMI 26.5
--- NOTE | 2019-02-21 15:10 | HP ---
CIWA Score - Admission Criteria [facility] Guidelines: Admission for Medically Managed Detox: Requires at least one of the followin. CIWA greater than 12 2. Seizures within the past 24 hours 3. Delirium tremens within the past 24 hours 4. Hallucinations within the past 24 hours 5. Acute intervention needed for co occurring medical disorder 6. Acute intervention needed for co occurring psychiatric disorder 7. Severe withdrawal that cannot be handled at a lower level of care (continued vomiting, continued diarrhea, abnormal vital signs) requiring intravenous medication and/or fluids 8. Admitting History and Physical - Admission Chief Complaint: Patient was sent to [facility] yesterday due to chest pain. History of Present Illness: ER assessment determined patient to have CHF with EF of 15%. He has been given an appointment with cardiology follow for possible assist device for heart failure. However, he was started on hydralazine and other afterload cardiac reduction medication which will be continued here in Rehab. When he completes rehab, he must follow up with cardiology for further treatment of his CHF. However, they have cleared him to continue rehabilitation at this time because he is now stable. 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: Peripheral Neuropathy Cardiovascular: Yes: HTN, Hyperlipdemia, Other (peripheral vascular disease) Pulmonary: Yes: Asthma Psych: Yes: Bipolar, Schizophrenia Endocrine: Yes: Diabetes Mellitus (Toe) - Past Surgical History Past Surgical History: Yes: Amputation (L 5 digits, R 5th digit) - Smoking History Smoking history: Never smoked Have you smoked in the past 12 months: No Aproximately how many cigarettes per day: 10 - Alcohol/Substance Use Hx Alcohol Use: Yes History of Substance Use: reports: Cocaine, Marijuana Date of Last Use: 02/13/19 Admission [facility] Allergies/Adverse Reactions: Allergies Allergy/AdvReac Type Severity Reaction Status Date / Time Pork/Porcine Containing Allergy Intermediate Itching Verified 02/21/19 14:21 Products acetaminophen [From Tylenol] Allergy Mild Itching Verified 02/21/19 14:21 Pasta Allergy Intermediate Itching Uncoded 02/21/19 14:21 - Ebola screening Have you traveled outside of the country in the last 21 days: No Have you had contact with anyone from an Ebola affected area: No Do you have a fever: No Patient History - Patient Medical History Hx Anemia: No Hx Asthma: Yes (Pt is on Albuterol IH) Hx Chronic Obstructive Pulmonary Disease (COPD): No Hx Cancer: No Hx Cardiac Disorders: No Hx Congestive Heart Failure: No Hx Hypertension: Yes Hx Hypercholesterolemia: Yes Hx Pacemaker: No HX Cerebrovascular Accident: No Hx Seizures: No Hx Dementia: No Hx Diabetes: Yes Hx Gastrointestinal Disorders: No Hx Liver Disease: No Hx Genitourinary Disorders: No Hx Sexually Transmitted Disorders: Yes (Gonorrhea 30 yrs ago) Hx Renal Disease (ESRD): No Hx Thyroid Disease: No Hx Human Immunodeficiency Virus (HIV): No Hx Hepatitis C: No Hx Depression: Yes Hx Suicide Attempt: No Hx Bipolar Disorder: No Hx Schizophrenia: Yes - Patient Surgical History Past Surgical History: Yes Hx Neurologic Surgery: No Hx Cataract Extraction: No Hx Cardiac Surgery: No Hx Lung Surgery: No Hx Breast Surgery: No Hx Breast Biopsy: No Hx Abdominal Surgery: No Hx Appendectomy: No Hx Cholecystectomy: No Hx Genitourinary Surgery: No Hx Orthopedic Surgery: Yes (2013 LEFT TOES AMPUTATION) Other Surgical History: 2003 KYLOID REMOVED Anesthesia Reaction: No - Smoking Cessation Smoking history: Never smoked Have you smoked in the past 12 months: No Aproximately how many cigarettes per day: 10 Hx Chewing Tobacco Use: No - Substances abused Alcohol Substance route: Oral Frequency: Daily Amount used: 6 pk beer Age of first use: 8 Date of last use: 02/13/19 Cocaine Substance route: Smoking Frequency: 3-6 times per week Amount used: $10 Age of first use: 21 Date of last use: 02/13/19 Marijuana/Hashish Substance route: Smoking Admission Physical Exam BHS - Vital Signs Vital Signs: Vital Signs - 24 hr 02/21/19 14:19 Temperature 97.1 F L Pulse Rate 68 Respiratory 18 Rate Blood Pressure 155/89 - Physical General Appearance: Yes: Mild Distress HEENTM: Yes: EOMI, Hearing grossly Normal, Normal ENT Inspection, Normocephalic , Normal Voice, HARRY, Pharynx Normal, Tm's normal Respiratory: Yes: Chest Non-Tender, Lungs Clear, Normal Breath Sounds, No Respiratory Distress, No Accessory Muscle Use, Other (shortness of breath on exertion) Neck: Yes: No masses,lesions,Nodules, Supple, Trachea in good position Breast: Yes: Within Normal Limits Cardiology: Yes: Regular Rhythm, Regular Rate, S1, S2 Abdominal: Yes: Normal Bowel Sounds, Non Tender, Flat, Soft Genitourinary: Yes: Within Normal Limits Back: Yes: Normal Inspection Musculoskeletal: Yes: full range of Motion, Gait Steady, Pelvis Stable Extremities: Yes: Normal Capillary Refill, Normal Inspection Neurological: Yes: branch sales and service representative II-XII NML intact, Fully Oriented, Alert, Motor Strength 5/5, Normal Mood/Affect, Normal Response Integumentary: Yes: Normal Color, Warm Lymphatic: Yes: Within Normal Limits - Diagnostic (1) Alcohol dependence Current Visit: Yes Status: Acute (2) Cocaine dependence Current Visit: Yes Status: Acute (3) Asthma Current Visit: Yes Status: Chronic (4) Diabetes mellitus, type II, insulin dependent Current Visit: Yes Status: Chronic Comment: PATIENT HAND IN ALL MEDICATIONS NO DIABETES MEDICATION WAS FOUND (5) Dilated cardiomyopathy Current Visit: Yes Status: Chronic (6) Hypercholesteremia Current Visit: Yes Status: Chronic Comment: LIPITOR 20 MG (7) Hypertension Current Visit: Yes Status: Chronic Qualifiers: (8) NYHA class 3 heart failure with reduced ejection fraction Current Visit: Yes Status: Chronic (9) Shortness of breath Current Visit: Yes Status: Resolved Screened but not Admitted - Documentation of Visit Screened but not Admitted: No Breathalyzer - Breathalyzer Breathalyzer: 0 Urine Drug Screen - Test Device Lot number: [id number] Expiration date: 09/15/20 - Control Is test valid?: Yes - Results Drug screen NEGATIVE: No Urine drug screen results: [facility]-Cocaine Inpatient Rehab Admission - Rehab Decision to Admit Inpatient rehab admission?: No
[2019-02-21] MEDS ORDERED: MAGNESIUM CITRATE 300 ML BOTTLE PO PRN (15:11)
[2019-02-21] MEDS ORDERED: LOPERAMIDE HCL 2 MG CAPSULE PO PRN (15:11)
[2019-02-21] MEDS ORDERED: MAG HYDROX/AL HYDROX/SIMETH 30 ML UNIT-DOSE CUP PO PRN (15:11)
[2019-02-21] MEDS ORDERED: P-EPHED 60MG/TRIPROLIDI 2.5MG TABLET PO PRN (15:11)
[2019-02-21] MEDS ORDERED: ACETAMINOPHEN 325 MG TABLET (FP) PO PRN (15:11)
[2019-02-21] MEDS ORDERED: guaiFENesin 200 MG/10 ML 10 ML UNIT-DOSE CUPS PO PRN (15:11)
[2019-02-21] MEDS ORDERED: MENTHOL/PHENOL 1 EACH UD MM PRN (15:11)
[2019-02-21] MEDS ORDERED: IBUPROFEN 400 MG TABLET (FP) PO PRN (15:11)
[2019-02-21] MEDS ORDERED: MAGNESIUM HYDROX 2400MG/30ML ORAL SUSPENSION 30 ML CUP PO PRN (15:11)
[2019-02-21] MEDS: INSULIN SLIDING SCALE (NOVOLOG) 1 VIAL SQ SCH ×2 (16:47→21:13)
[2019-02-21] MEDS: THIAMINE HCL 100 MG TABLET (FP) PO SCH (21:08)
[2019-02-21] MEDS: MELATONIN 5 MG TABLETS PO PRN (21:08)
[2019-02-21] MEDS: FUROSEMIDE 40 MG TABLET (FP) PO SCH (21:08)
[2019-02-21] MEDS: ATORVASTATIN CA 20 MG TABLET (FP) PO SCH (21:08)
[2019-02-21] MEDS: INSULIN (LEVEMIR) 100 UNITS/ML UNITS SQ SCH (21:13)
[2019-02-21] MEDS ORDERED: INSULIN (NOVOLOG) ASPART 100 UNITS/ML 10ML VIAL ONE (21:40)
[2019-02-22] MEDS ORDERED: ALBUTEROL SO4 8 GM HFA INHALER IH PRN (02:29)
--- NOTE | 2019-02-22 02:53 | PN ---
[facility] Progress Note Note: ASKED TO SEE CLIENT FOR C/O SOB AND PAIN... CLIENT REQUESTING TO GO TO ER./ OXYCODONE CLIENT SEEN SEATING IN NAD A/0 X3 Vital Signs Temperature 97.9 F 02/22/19 02:43 Pulse Rate 74 02/22/19 02:43 Respiratory Rate 18 02/22/19 02:43 Blood Pressure 148/88 02/22/19 02:43 O2 Sat by Pulse Oximetry (%) 02 SAT RA 95% CLIENT REFUSING EXAM OR TO SPEAK WITH PROVIDER. "I DON'T WANT ANYTHING JUST SEND ME TO THE HOSPITAL" REQUESTING OXYCODONE FOR PAIN CLIENT REFUSING TO SPEAK WITH PROVIDER. CLIENT IS A HOSPITAL RETURN FROM [facility] TODAY. HE WAS TX'ED AND CLEARED FOR WORSENING CHF. D/W CLIENT THAT HE WILL NOT BE SENT TO THE ER THERE IS NO CLINICAL INDICATION OF DISTRESS. CLIENT INSIST THAT HE DOES NOT WANT TO CONTINUE TXMENT HERE AND THAT HE WANTS TO GO BACK TO HOSPITAL. CLIENT INFORMED THAT HE WOULD BE SIGNING OUT AMA. CLIENT DECLINES FURTHER DISCUSSION. SEATED IN NAD. P- ALBUTEROL INH PRN O2 2L NC PRN CONTINUE TO MONITOR CLINICALLY
[2019-02-22] MEDS: INSULIN SLIDING SCALE (NOVOLOG) 1 VIAL SQ SCH ×4 (07:51→21:33)
[2019-02-22] MEDS: ISOSORBIDE MONONITRATE 30 MG TAB.SR.24H (FP) PO SCH (10:57)
[2019-02-22] MEDS: ASPIRIN COATED 81 MG TABLET.EC PO SCH (10:57)
[2019-02-22] MEDS: FUROSEMIDE 40 MG TABLET (FP) PO SCH ×2 (10:57→21:29)
[2019-02-22] MEDS: PRENATAL VITAMINS W/ FOLIC ACID TABLET (FP) PO SCH (10:58)
[2019-02-22] MEDS: NICOTINE 7 MG/24 HOURS TOPICAL PATCH TD SCH (10:58)
[2019-02-22] MEDS ORDERED: INSULIN (NOVOLOG) ASPART 100 UNITS/ML 10ML VIAL ONE ×2 (12:15→16:28)
[2019-02-22] MEDS ORDERED: ALBUTEROL SO4 2.5/IPRATROPIUM 0.5 INH SOL 3 ML VIAL.NEB. NEB PRN (14:48)
[2019-02-22] MEDS: THIAMINE HCL 100 MG TABLET (FP) PO SCH (21:28)
[2019-02-22] MEDS: MELATONIN 5 MG TABLETS PO PRN (21:28)
[2019-02-22] MEDS: ATORVASTATIN CA 20 MG TABLET (FP) PO SCH (21:29)
[2019-02-22] MEDS: INSULIN (LEVEMIR) 100 UNITS/ML UNITS SQ SCH (21:33)
[2019-02-23] MEDS: INSULIN SLIDING SCALE (NOVOLOG) 1 VIAL SQ SCH ×4 (06:52→21:12)
[2019-02-23] MEDS ORDERED: PT OWN MED DRAWER 7, Y5N ONE (09:20)
[2019-02-23] MEDS: NICOTINE 7 MG/24 HOURS TOPICAL PATCH TD SCH (11:10)
[2019-02-23] MEDS: ISOSORBIDE MONONITRATE 30 MG TAB.SR.24H (FP) PO SCH (11:10)
[2019-02-23] MEDS: FUROSEMIDE 40 MG TABLET (FP) PO SCH ×2 (11:10→21:08)
[2019-02-23] MEDS: ASPIRIN COATED 81 MG TABLET.EC PO SCH (11:10)
[2019-02-23] MEDS: PRENATAL VITAMINS W/ FOLIC ACID TABLET (FP) PO SCH (11:10)
[2019-02-23] MEDS: THIAMINE HCL 100 MG TABLET (FP) PO SCH (21:08)
[2019-02-23] MEDS: MELATONIN 5 MG TABLETS PO PRN (21:08)
[2019-02-23] MEDS: ATORVASTATIN CA 20 MG TABLET (FP) PO SCH (21:08)
[2019-02-23] MEDS: INSULIN (LEVEMIR) 100 UNITS/ML UNITS SQ SCH (21:13)
[2019-02-23] MEDS ORDERED: INSULIN (NOVOLOG) ASPART 100 UNITS/ML 10ML VIAL ONE (21:48)
[2019-02-24] MEDS: INSULIN SLIDING SCALE (NOVOLOG) 1 VIAL SQ SCH ×4 (08:52→22:43)
[2019-02-24] MEDS: NICOTINE 7 MG/24 HOURS TOPICAL PATCH TD SCH (11:14)
[2019-02-24] MEDS: FUROSEMIDE 40 MG TABLET (FP) PO SCH ×2 (11:14→22:43)
[2019-02-24] MEDS: ISOSORBIDE MONONITRATE 30 MG TAB.SR.24H (FP) PO SCH (11:14)
[2019-02-24] MEDS: ASPIRIN COATED 81 MG TABLET.EC PO SCH (11:14)
[2019-02-24] MEDS: PRENATAL VITAMINS W/ FOLIC ACID TABLET (FP) PO SCH (11:14)
[2019-02-24] MEDS ORDERED: INSULIN (NOVOLOG) ASPART 100 UNITS/ML 10ML VIAL ONE (18:27)
[2019-02-24] MEDS: INSULIN (LEVEMIR) 100 UNITS/ML UNITS SQ SCH (22:41)
[2019-02-24] MEDS: ATORVASTATIN CA 20 MG TABLET (FP) PO SCH (22:43)
[2019-02-24] MEDS: THIAMINE HCL 100 MG TABLET (FP) PO SCH (22:43)
[2019-02-25] MEDS ORDERED: ALBUTEROL SO4 2.5/IPRATROPIUM 0.5 INH SOL 3 ML VIAL.NEB. NEB ONE (02:02)
[2019-02-25] MEDS: INSULIN SLIDING SCALE (NOVOLOG) 1 VIAL SQ SCH ×4 (07:04→21:18)
[2019-02-25] MEDS: PRENATAL VITAMINS W/ FOLIC ACID TABLET (FP) PO SCH (09:39)
[2019-02-25] MEDS: NICOTINE 7 MG/24 HOURS TOPICAL PATCH TD SCH (09:39)
[2019-02-25] MEDS: FUROSEMIDE 40 MG TABLET (FP) PO SCH ×2 (09:57→21:16)
[2019-02-25] MEDS: ASPIRIN COATED 81 MG TABLET.EC PO SCH (09:57)
[2019-02-25] MEDS: ISOSORBIDE MONONITRATE 30 MG TAB.SR.24H (FP) PO SCH (09:57)
[2019-02-25] MEDS ORDERED: INSULIN (NOVOLOG) ASPART 100 UNITS/ML 10ML VIAL ONE ×2 (11:44→17:17)
[2019-02-25] MEDS: THIAMINE HCL 100 MG TABLET (FP) PO SCH (21:16)
[2019-02-25] MEDS: ATORVASTATIN CA 20 MG TABLET (FP) PO SCH (21:16)
[2019-02-25] MEDS: INSULIN (LEVEMIR) 100 UNITS/ML UNITS SQ SCH (21:18)
[2019-02-26] MEDS: INSULIN SLIDING SCALE (NOVOLOG) 1 VIAL SQ SCH ×4 (06:47→21:48)
[2019-02-26] MEDS: PRENATAL VITAMINS W/ FOLIC ACID TABLET (FP) PO SCH (10:53)
[2019-02-26] MEDS: NICOTINE 7 MG/24 HOURS TOPICAL PATCH TD SCH (10:53)
[2019-02-26] MEDS: ISOSORBIDE MONONITRATE 30 MG TAB.SR.24H (FP) PO SCH (10:53)
[2019-02-26] MEDS: FUROSEMIDE 40 MG TABLET (FP) PO SCH ×2 (10:53→21:44)
[2019-02-26] MEDS: ASPIRIN COATED 81 MG TABLET.EC PO SCH (10:53)
[2019-02-26] MEDS: THIAMINE HCL 100 MG TABLET (FP) PO SCH (21:44)
[2019-02-26] MEDS: MELATONIN 5 MG TABLETS PO PRN (21:44)
[2019-02-26] MEDS: ATORVASTATIN CA 20 MG TABLET (FP) PO SCH (21:44)
[2019-02-26] MEDS: INSULIN (LEVEMIR) 100 UNITS/ML UNITS SQ SCH (21:50)
[2019-02-26] MEDS ORDERED: INSULIN (NOVOLOG) ASPART 100 UNITS/ML 10ML VIAL ONE (21:52)
--- NOTE | 2019-02-27 04:06 | PN ---
[facility] Progress Note Note: Informed that patient seen walking outside of unit. Stated was leaving and going to ED. Refused to go back onto unit and went down to lobby to go to hospital on own. Patient seen by me in lobby and c/o chest pain and SOB. States chest and leg pains are "10/10" Objective: (L) chest pectoral area w/ pain elicited on topical palpation. HR: 80 w/ regular rhythm. Pulse Ox = 99% BGM = 128 BLE edema w/tenderness upon soft palpation. Plan: EMS called and patient transported. Reprt given to Dr. Chavez @ [facility].
[2019-02-27] MEDS: INSULIN SLIDING SCALE (NOVOLOG) 1 VIAL SQ SCH ×4 (07:25→22:14)
[2019-02-27] MEDS: NICOTINE 7 MG/24 HOURS TOPICAL PATCH TD SCH (11:16)
[2019-02-27] MEDS: FUROSEMIDE 40 MG TABLET (FP) PO SCH ×2 (11:16→22:20)
[2019-02-27] MEDS: ISOSORBIDE MONONITRATE 30 MG TAB.SR.24H (FP) PO SCH (11:16)
[2019-02-27] MEDS: ASPIRIN COATED 81 MG TABLET.EC PO SCH (11:16)
[2019-02-27] MEDS: PRENATAL VITAMINS W/ FOLIC ACID TABLET (FP) PO SCH (11:16)
[2019-02-27] MEDS: ATORVASTATIN CA 20 MG TABLET (FP) PO SCH (22:13)
[2019-02-27] MEDS: MELATONIN 5 MG TABLETS PO PRN (22:13)
[2019-02-27] MEDS: THIAMINE HCL 100 MG TABLET (FP) PO SCH (22:13)
[2019-02-27] MEDS: INSULIN (LEVEMIR) 100 UNITS/ML UNITS SQ SCH (22:14)
[2019-02-28] MEDS: INSULIN SLIDING SCALE (NOVOLOG) 1 VIAL SQ SCH ×3 (07:00→22:10)
[2019-02-28] MEDS ORDERED: INSULIN (NOVOLOG) ASPART 100 UNITS/ML 10ML VIAL ONE (11:54)
[2019-02-28] MEDS: FUROSEMIDE 40 MG TABLET (FP) PO SCH ×2 (11:59→21:59)
[2019-02-28] MEDS: ISOSORBIDE MONONITRATE 30 MG TAB.SR.24H (FP) PO SCH (12:00)
[2019-02-28] MEDS: ASPIRIN COATED 81 MG TABLET.EC PO SCH (12:00)
[2019-02-28] MEDS: NICOTINE 7 MG/24 HOURS TOPICAL PATCH TD SCH (12:00)
[2019-02-28] MEDS: PRENATAL VITAMINS W/ FOLIC ACID TABLET (FP) PO SCH (12:01)
[2019-02-28] MEDS ORDERED: HYDROCORTISONE 1% TOPICAL CREAM 30 GM TUBE TP PRN (14:01)
[2019-02-28] MEDS: diphenhydrAMINE HCL 25 MG CAPSULE (FP) PO PRN (14:05)
[2019-02-28] MEDS ORDERED: INSULIN (LEVEMIR) 100 UNITS/ML UNITS SQ ONE (19:26)
[2019-02-28] MEDS: INSULIN (LEVEMIR) 100 UNITS/ML UNITS SQ SCH (21:59)
[2019-02-28] MEDS: THIAMINE HCL 100 MG TABLET (FP) PO SCH (21:59)
[2019-02-28] MEDS: MELATONIN 5 MG TABLETS PO PRN (21:59)
[2019-02-28] MEDS: ATORVASTATIN CA 20 MG TABLET (FP) PO SCH (21:59)
[2019-03-01] MEDS: diphenhydrAMINE HCL 25 MG CAPSULE (FP) PO PRN (04:25)
[2019-03-01] MEDS: ALBUTEROL SO4 0.083% IH SOL 2.5 MG/3 ML VIAL.NEB. NEB PRN (04:28)
[2019-03-01] MEDS: COLLOIDAL OATMEAL 1 BAR EACH TP PRN (07:24)
[2019-03-01] MEDS: INSULIN SLIDING SCALE (NOVOLOG) 1 VIAL SQ SCH ×5 (07:24→21:28)
[2019-03-01] MEDS: PRENATAL VITAMINS W/ FOLIC ACID TABLET (FP) PO SCH (10:32)
[2019-03-01] MEDS: FUROSEMIDE 40 MG TABLET (FP) PO SCH ×2 (10:33→22:56)
[2019-03-01] MEDS: ASPIRIN COATED 81 MG TABLET.EC PO SCH (10:33)
[2019-03-01] MEDS: ISOSORBIDE MONONITRATE 30 MG TAB.SR.24H (FP) PO SCH (10:33)
[2019-03-01] MEDS: NICOTINE 7 MG/24 HOURS TOPICAL PATCH TD SCH (10:34)
[2019-03-01] MEDS ORDERED: PT OWN MED DRAWER 7, Y5N ONE (21:23)
[2019-03-01] MEDS: MELATONIN 5 MG TABLETS PO PRN (21:24)
[2019-03-01] MEDS: THIAMINE HCL 100 MG TABLET (FP) PO SCH (21:24)
[2019-03-01] MEDS: INSULIN (LEVEMIR) 100 UNITS/ML UNITS SQ SCH (21:28)
[2019-03-01] MEDS: ATORVASTATIN CA 20 MG TABLET (FP) PO SCH (22:56)
[2019-03-02] MEDS: INSULIN SLIDING SCALE (NOVOLOG) 1 VIAL SQ SCH ×4 (06:17→21:43)
[2019-03-02] MEDS ORDERED: PT OWN MED DRAWER 7, Y5N ONE (09:05)
[2019-03-02] MEDS: ISOSORBIDE MONONITRATE 30 MG TAB.SR.24H (FP) PO SCH ×2 (09:37→10:13)
[2019-03-02] MEDS: PRENATAL VITAMINS W/ FOLIC ACID TABLET (FP) PO SCH ×2 (09:38→10:14)
[2019-03-02] MEDS ORDERED: ALBUTEROL SO4 8 GM HFA INHALER IH PRN (09:49)
[2019-03-02] MEDS ORDERED: MAGNESIUM CITRATE 300 ML BOTTLE PO PRN (09:50)
[2019-03-02] MEDS ORDERED: MAGNESIUM HYDROX 2400MG/30ML ORAL SUSPENSION 30 ML CUP PO PRN (09:50)
[2019-03-02] MEDS ORDERED: MAG HYDROX/AL HYDROX/SIMETH 30 ML UNIT-DOSE CUP PO PRN (09:50)
[2019-03-02] MEDS ORDERED: guaiFENesin 200 MG/10 ML 10 ML UNIT-DOSE CUPS PO PRN (09:50)
[2019-03-02] MEDS ORDERED: IBUPROFEN 400 MG TABLET (FP) PO PRN (09:50)
[2019-03-02] MEDS ORDERED: LOPERAMIDE HCL 2 MG CAPSULE PO PRN (09:50)
[2019-03-02] MEDS ORDERED: P-EPHED 60MG/TRIPROLIDI 2.5MG TABLET PO PRN (09:51)
[2019-03-02] MEDS ORDERED: MENTHOL/PHENOL 1 EACH UD MM PRN (09:51)
[2019-03-02] MEDS: NICOTINE 7 MG/24 HOURS TOPICAL PATCH TD SCH (10:13)
[2019-03-02] MEDS: ASPIRIN COATED 81 MG TABLET.EC PO SCH (10:13)
[2019-03-02] MEDS: FUROSEMIDE 40 MG TABLET (FP) PO SCH ×2 (10:13→21:39)
--- NOTE | 2019-03-02 16:12 | PN ---
[facility] Progress Note Note: Patient evaluated after ER visit 02/27/19. Patient readmitted to [facility] after evaluation for chest pain, SOB at [facility] on 02/27/19. PMH: CHF, HTN, HLD, DM, ETOH/Cocaine/THC dependence, Bipolar disorder and Schizophrenia. ROS: denies chest pain, sob and dizziness PE alert and oriented x 3 skin warm and dry Car/Resp refused ext amb with cane, no tremors A/P: CHF/HTN/HLD ETOH dependence cocaine dependence THC dependence Will continue rehab services continue current medical treatment monitor clinically
[2019-03-02] MEDS: THIAMINE HCL 100 MG TABLET (FP) PO SCH (21:39)
[2019-03-02] MEDS: ATORVASTATIN CA 20 MG TABLET (FP) PO SCH (21:39)
[2019-03-02] MEDS: INSULIN (LEVEMIR) 100 UNITS/ML UNITS SQ SCH (21:43)
[2019-03-03] MEDS: INSULIN SLIDING SCALE (NOVOLOG) 1 VIAL SQ SCH ×4 (07:12→22:19)
[2019-03-03] MEDS: ISOSORBIDE MONONITRATE 30 MG TAB.SR.24H (FP) PO SCH (10:36)
[2019-03-03] MEDS: FUROSEMIDE 40 MG TABLET (FP) PO SCH ×2 (10:36→22:18)
[2019-03-03] MEDS: ASPIRIN COATED 81 MG TABLET.EC PO SCH (10:36)
[2019-03-03] MEDS: NICOTINE 7 MG/24 HOURS TOPICAL PATCH TD SCH (10:37)
[2019-03-03] MEDS: PRENATAL VITAMINS W/ FOLIC ACID TABLET (FP) PO SCH (10:37)
[2019-03-03] MEDS ORDERED: INSULIN (NOVOLOG) ASPART 100 UNITS/ML 10ML VIAL ONE (11:44)
[2019-03-03] MEDS ORDERED: INSULIN (LEVEMIR) 100 UNITS/ML UNITS SQ ONE (22:17)
[2019-03-03] MEDS: INSULIN (LEVEMIR) 100 UNITS/ML UNITS SQ SCH (22:18)
[2019-03-03] MEDS: ATORVASTATIN CA 20 MG TABLET (FP) PO SCH (22:19)
[2019-03-03] MEDS: THIAMINE HCL 100 MG TABLET (FP) PO SCH (22:25)
[2019-03-04] MEDS: INSULIN SLIDING SCALE (NOVOLOG) 1 VIAL SQ SCH ×4 (07:50→21:28)
[2019-03-04] MEDS: ISOSORBIDE MONONITRATE 30 MG TAB.SR.24H (FP) PO SCH (10:59)
[2019-03-04] MEDS: FUROSEMIDE 40 MG TABLET (FP) PO SCH ×2 (10:59→21:27)
[2019-03-04] MEDS: NICOTINE 7 MG/24 HOURS TOPICAL PATCH TD SCH (10:59)
[2019-03-04] MEDS: ASPIRIN COATED 81 MG TABLET.EC PO SCH (10:59)
[2019-03-04] MEDS: PRENATAL VITAMINS W/ FOLIC ACID TABLET (FP) PO SCH (10:59)
[2019-03-04] MEDS: ALBUTEROL SO4 0.083% IH SOL 2.5 MG/3 ML VIAL.NEB. NEB PRN (12:00)
[2019-03-04] MEDS ORDERED: INSULIN (NOVOLOG) ASPART 100 UNITS/ML 10ML VIAL ONE (16:24)
[2019-03-04] MEDS: INSULIN (LEVEMIR) 100 UNITS/ML UNITS SQ SCH (21:27)
[2019-03-04] MEDS: MELATONIN 5 MG TABLETS PO PRN (21:27)
[2019-03-04] MEDS: THIAMINE HCL 100 MG TABLET (FP) PO SCH (21:27)
[2019-03-04] MEDS: ATORVASTATIN CA 20 MG TABLET (FP) PO SCH (21:28)
[2019-03-05] MEDS: diphenhydrAMINE HCL 25 MG CAPSULE (FP) PO PRN (00:45)
[2019-03-05] MEDS ORDERED: KETOROLAC TROMETHAMINE 30 MG/1 ML VIAL IM ONE (01:23)
[2019-03-05] MEDS: INSULIN SLIDING SCALE (NOVOLOG) 1 VIAL SQ SCH ×4 (06:16→23:57)
[2019-03-05] MEDS: ISOSORBIDE MONONITRATE 30 MG TAB.SR.24H (FP) PO SCH (10:37)
[2019-03-05] MEDS: ASPIRIN COATED 81 MG TABLET.EC PO SCH (10:38)
[2019-03-05] MEDS: NICOTINE 7 MG/24 HOURS TOPICAL PATCH TD SCH (10:38)
[2019-03-05] MEDS: FUROSEMIDE 40 MG TABLET (FP) PO SCH ×2 (10:38→19:00)
[2019-03-05] MEDS: PRENATAL VITAMINS W/ FOLIC ACID TABLET (FP) PO SCH (10:38)
[2019-03-05] MEDS ORDERED: INSULIN (NOVOLOG) ASPART 100 UNITS/ML 10ML VIAL ONE (17:38)
[2019-03-05] MEDS: INSULIN (LEVEMIR) 100 UNITS/ML UNITS SQ SCH (23:56)
[2019-03-05] MEDS: ATORVASTATIN CA 20 MG TABLET (FP) PO SCH (23:57)
[2019-03-05] MEDS: THIAMINE HCL 100 MG TABLET (FP) PO SCH (23:57)
[2019-03-06] MEDS: diphenhydrAMINE HCL 25 MG CAPSULE (FP) PO PRN (00:19)
[2019-03-06] MEDS ORDERED: INSULIN (NOVOLOG) ASPART 100 UNITS/ML 10ML VIAL ONE ×2 (06:28→12:05)
[2019-03-06] MEDS: INSULIN SLIDING SCALE (NOVOLOG) 1 VIAL SQ SCH ×4 (07:21→21:55)
[2019-03-06] MEDS: PRENATAL VITAMINS W/ FOLIC ACID TABLET (FP) PO SCH (10:37)
[2019-03-06] MEDS: ASPIRIN COATED 81 MG TABLET.EC PO SCH (10:37)
[2019-03-06] MEDS: ISOSORBIDE MONONITRATE 30 MG TAB.SR.24H (FP) PO SCH (10:37)
[2019-03-06] MEDS: NICOTINE 7 MG/24 HOURS TOPICAL PATCH TD SCH (10:38)
[2019-03-06] MEDS: FUROSEMIDE 40 MG TABLET (FP) PO SCH ×2 (10:38→17:14)
[2019-03-06] MEDS: ATORVASTATIN CA 20 MG TABLET (FP) PO SCH (21:55)
[2019-03-06] MEDS: THIAMINE HCL 100 MG TABLET (FP) PO SCH (21:55)
[2019-03-06] MEDS: MELATONIN 5 MG TABLETS PO PRN (21:55)
[2019-03-06] MEDS: INSULIN (LEVEMIR) 100 UNITS/ML UNITS SQ SCH (21:58)
[2019-03-07] MEDS: diphenhydrAMINE HCL 25 MG CAPSULE (FP) PO PRN (03:59)
[2019-03-07] MEDS: INSULIN SLIDING SCALE (NOVOLOG) 1 VIAL SQ SCH ×4 (06:49→22:49)
[2019-03-07] MEDS: FUROSEMIDE 40 MG TABLET (FP) PO SCH ×2 (10:41→17:14)
[2019-03-07] MEDS: ISOSORBIDE MONONITRATE 30 MG TAB.SR.24H (FP) PO SCH (10:41)
[2019-03-07] MEDS: PRENATAL VITAMINS W/ FOLIC ACID TABLET (FP) PO SCH (10:41)
[2019-03-07] MEDS: ASPIRIN COATED 81 MG TABLET.EC PO SCH (10:41)
[2019-03-07] MEDS: NICOTINE 7 MG/24 HOURS TOPICAL PATCH TD SCH (10:42)
[2019-03-07] MEDS ORDERED: INSULIN (NOVOLOG) ASPART 100 UNITS/ML 10ML VIAL ONE ×2 (10:45→22:53)
[2019-03-07] MEDS ORDERED: INSULIN (LEVEMIR) 100 UNITS/ML UNITS SQ ONE (22:46)
[2019-03-07] MEDS: ATORVASTATIN CA 20 MG TABLET (FP) PO SCH (22:50)
[2019-03-07] MEDS: THIAMINE HCL 100 MG TABLET (FP) PO SCH (22:50)
[2019-03-07] MEDS: INSULIN (LEVEMIR) 100 UNITS/ML UNITS SQ SCH (23:10)
[2019-03-08] MEDS: INSULIN SLIDING SCALE (NOVOLOG) 1 VIAL SQ SCH ×4 (07:36→21:08)
[2019-03-08] MEDS: NICOTINE 7 MG/24 HOURS TOPICAL PATCH TD SCH (10:24)
[2019-03-08] MEDS: ISOSORBIDE MONONITRATE 30 MG TAB.SR.24H (FP) PO SCH (10:24)
[2019-03-08] MEDS: FUROSEMIDE 40 MG TABLET (FP) PO SCH ×2 (10:24→17:12)
[2019-03-08] MEDS: ASPIRIN COATED 81 MG TABLET.EC PO SCH (10:24)
[2019-03-08] MEDS: PRENATAL VITAMINS W/ FOLIC ACID TABLET (FP) PO SCH (10:24)
[2019-03-08] MEDS: COLLOIDAL OATMEAL 1 BAR EACH TP PRN (19:26)
[2019-03-08] MEDS ORDERED: INSULIN (LEVEMIR) 100 UNITS/ML UNITS SQ ONE (21:06)
[2019-03-08] MEDS: ATORVASTATIN CA 20 MG TABLET (FP) PO SCH (21:08)
[2019-03-08] MEDS: THIAMINE HCL 100 MG TABLET (FP) PO SCH (21:08)
[2019-03-08] MEDS: MELATONIN 5 MG TABLETS PO PRN (21:09)
[2019-03-08] MEDS: INSULIN (LEVEMIR) 100 UNITS/ML UNITS SQ SCH (21:10)
[2019-03-09 07:12] VITALS: BP 146/90; PULSE 84; TEMP 98
[2019-03-09] MEDS: INSULIN SLIDING SCALE (NOVOLOG) 1 VIAL SQ SCH (07:28)
[2019-03-09] MEDS: ISOSORBIDE MONONITRATE 30 MG TAB.SR.24H (FP) PO SCH (09:41)
[2019-03-09] MEDS: ASPIRIN COATED 81 MG TABLET.EC PO SCH (09:41)
[2019-03-09] MEDS: FUROSEMIDE 40 MG TABLET (FP) PO SCH (09:41)
[2019-03-09] MEDS: NICOTINE 7 MG/24 HOURS TOPICAL PATCH TD SCH (09:41)
[2019-03-09] MEDS: PRENATAL VITAMINS W/ FOLIC ACID TABLET (FP) PO SCH (09:41)
--- NOTE | 2019-03-09 10:18 | DS ---
[facility] Rehab Discharge Summary - [facility] Rehab Discharge Summary Admission Date: 02/21/19 Discharge Date: 03/09/19 - History Present History: Alcohol dependence, Cannabis dependence, Opioid dependence Pertinent Past History: S/P ER visit and readmission note 02/21/19-DR. Doan: ER assessment determined patient to have CHF with EF of 15%. He has been given an appointment with cardiology follow for possible assist device for heart failure. However, he was started on hydralazine and other afterload cardiac reduction medication which will be continued here in Rehab. When he completes rehab, he must follow up with cardiology for further treatment of his CHF. However, they have cleared him to continue rehabilitation at this time because he is now stable. - Discharge Physical Exam Vital Signs: Vital Signs Temperature 98 F 03/09/19 07:12 Pulse Rate 84 03/09/19 07:12 Respiratory Rate 18 03/09/19 07:12 Blood Pressure 146/90 03/09/19 07:12 O2 Sat by Pulse Oximetry (%) Pertinent Admission Physical Exam Findings: ROS: denies chest pain, sob, dizziness, alcohol/opiod cravings, shakes, sweating and anxiety. PE: alert and oriented x 3 skin warm and dry car S1S2 Resp no adventitious breath sounds ext full rom, amb ad justina no tremors no anxiety, denies SI/HI - Treatment Discharge Condition: Discharge condition good Hospital Course: Patient completed rehab today after being readmitted 02/21/19 from [facility] for evaluation of chest pain and SOB. Patient dx with CHF and EF of 15%, patient treated with medication and cleared to complete rehab. Since 02/21/19, patient attended rehab groups, 1:1 counseling and consulted with psychiatry. Patient states he accomplished all rehab goals and is motivated to stay sober. Patient is medically stable for discharge and denies SI/HI. Laboratory Tests 02/21/19 02/21/19 02/22/19 16:44 21:09 06:17 POC Glucometer 144 253 65 02/22/19 02/22/19 02/22/19 12:12 16:29 21:30 POC Glucometer 199 137 275 02/23/19 02/23/19 02/23/19 06:49 11:13 16:46 POC Glucometer 77 149 188 02/23/19 02/24/19 02/24/19 21:08 06:14 12:14 POC Glucometer 225 87 144 02/24/19 02/24/19 02/25/19 18:16 22:39 05:34 POC Glucometer 326 176 129 02/25/19 02/25/19 02/25/19 11:43 17:08 21:14 POC Glucometer 174 160 205 02/26/19 02/26/19 02/26/19 06:47 11:35 16:48 POC Glucometer 87 141 291 02/26/19 02/27/19 02/27/19 21:46 16:51 22:06 POC Glucometer 155 164 291 02/28/19 02/28/19 02/28/19 06:27 11:28 17:43 POC Glucometer 87 158 115 02/28/19 03/01/19 03/01/19 21:56 07:22 11:48 POC Glucometer 214 105 125 03/01/19 03/02/19 03/02/19 21:24 06:05 11:36 POC Glucometer 363 99 105 03/02/19 03/02/19 03/03/19 16:47 21:40 07:09 POC Glucometer 150 205 73 03/03/19 03/03/19 03/03/19 10:37 17:08 22:14 POC Glucometer 154 90 218 03/04/19 03/04/19 03/04/19 11:01 16:25 20:54 POC Glucometer 289 112 207 03/05/19 03/05/19 03/05/19 06:10 11:45 17:17 POC Glucometer 130 148 212 03/06/19 03/06/19 03/06/19 06:17 12:03 16:27 POC Glucometer 178 170 181 03/06/19 03/07/19 03/07/19 21:54 06:20 10:44 POC Glucometer 276 60 168 03/07/19 03/07/19 03/08/19 16:53 22:43 11:24 POC Glucometer 175 259 124 03/08/19 03/08/19 16:35 21:07 POC Glucometer 150 258 Ambulatory Orders Insulin Glargine,Hum.rec.anlog [Basaglria Briceñoikrambo U-100] 20 units SQ HS 02/20/19 Insulin Sliding Scale [Novolog Vial Sliding Scale -] 0 units SQ ACHS 02/20/19 Carvedilol 25 mg PO BID #60 tablet 02/21/19 Folic Acid - 1 mg PO DAILY #30 tablet 02/21/19 Thiamine HCl [B-1] 100 mg PO DAILY #30 tablet 02/21/19 hydrALAZINE HCL [Apresoline -] 25 mg PO BID #60 tablet 02/21/19 Albuterol Sulfate Inhaler - [Ventolin HFA Inhaler -] 2 puff IH Q4H PRN #1 inhaler 03/09/19 Aspirin Coated [Ecotrin -] 81 mg PO DAILY #30 tablet.ec 03/09/19 Atorvastatin Ca [Lipitor] 10 mg PO HS #14 tablet 03/09/19 Furosemide 40 mg PO BID #30 tablet 03/09/19 Insulin (Levemir) [Levemir Vial] 20 units SQ HS #1 kit 03/09/19 Isosorbide Mononitrate [Imdur -] 30 mg PO DAILY #14 tab.sr.24h 03/09/19 - Medication Discharge Medications: Ambulatory Orders Insulin Glargine,Hum.rec.anlog [Basaglar Kwikpen U-100] 20 units SQ HS 02/20/19 Insulin Sliding Scale [Novolog Vial Sliding Scale -] 0 units SQ ACHS 02/20/19 Carvedilol 25 mg PO BID #60 tablet 02/21/19 Folic Acid - 1 mg PO DAILY #30 tablet 02/21/19 Thiamine HCl [B-1] 100 mg PO DAILY #30 tablet 02/21/19 hydrALAZINE HCL [Apresoline -] 25 mg PO BID #60 tablet 02/21/19 Albuterol Sulfate Inhaler - [Ventolin HFA Inhaler -] 2 puff IH Q4H PRN #1 inhaler 03/09/19 Aspirin Coated [Ecotrin -] 81 mg PO DAILY #30 tablet.ec 03/09/19 Atorvastatin Ca [Lipitor] 10 mg PO HS #14 tablet 03/09/19 Furosemide 40 mg PO BID #30 tablet 03/09/19 Insulin (Levemir) [Levemir Vial] 20 units SQ HS #1 kit 03/09/19 Isosorbide Mononitrate [Imdur -] 30 mg PO DAILY #14 tab.sr.24h 03/09/19 - Medication-Assisted Treatment (MAT) Medication-Assisted Treatment (MAT): No MAT Follow-up Referral: [facility] scheduled for 03/12/19 at 10am. - Discharge Instructions Diet, activity, other medical instructions: Diet: MARGAUX as tolerated Activity: as tolerated Other medical instructions: follow up with PCP as recommended - Follow-up Referral Minutes to complete discharge: 30 - AMA Did Patient Leave Against Medical Advice: No
== END 2019-03-09 09:45 | disposition home or self-care (01) | DRG 772 ==
LOC: YASAS 13:53 → Y3W 15:36 → UNDODISIN 02-27 03:10 → Y3W 03-08 14:07
PROVIDERS: ADMIT Neuromusculoskeletal Medicine & OMM; ATTEND Neuromusculoskeletal Medicine & OMM
PROC: HZ42ZZZ Group Counseling for Substance Abuse Treatment, Cognitive-Behavioral (ICD-10-PCS; principal; 2019-02-21)
DX: F10.20 Alcohol dependence, uncomplicated (principal); F11.20 Opioid dependence, uncomplicated; F14.20 Cocaine dependence, uncomplicated; F12.20 Cannabis dependence, uncomplicated; F20.9 Schizophrenia, unspecified; F31.9 Bipolar disorder, unspecified; I11.0 Hypertensive heart disease with heart failure; I50.9 Heart failure, unspecified; I42.0 Dilated cardiomyopathy; I73.9 Peripheral vascular disease, unspecified; E11.65 Type 2 diabetes mellitus with hyperglycemia; Z79.4 Long term (current) use of insulin; J45.909 Unspecified asthma, uncomplicated; E78.5 Hyperlipidemia, unspecified; Z88.8 Allergy status to other drugs, medicaments and biological substances; Z91.018 Allergy to other foods
CPT/HCPCS: 82962; 94640

== ENCOUNTER 2019-02-27 03:48 | Observation (INO) | payer OTHER ==
--- NOTE | 2019-02-27 04:20 | PDOC ---
Attending Attestation - Resident Resident Name: ApodacaTommy - ED Attending Attestation I have performed the following: I have examined & evaluated the patient, The case was reviewed & discussed with the resident, I agree w/resident's findings & plan - HPI HPI: 02/27/19 04:19 see resident hpi - Physicial Exam PE: 02/27/19 04:19 agree with resident exam - Medical Decision Making 02/27/19 04:19 53-year-old male with history of alcohol and cocaine abuse with paroxysmal nocturnal dyspnea and lower extremity swelling Plan for chest x-ray, EKG and labs including troponin Patient will require at minimum and observation admission due to history prior to clearance back to rehab facility
--- NOTE | 2019-02-27 04:34 | PDOC ---
History of Present Illness - General Stated Complaint: CHEST PAIN Time Seen by Provider: 02/27/19 03:57 History Source: Patient Exam Limitations: No Limitations - History of Present Illness Initial Comments: 03/02/19 07:49 HPI: 53M PMH DM, HTN, HLD, CHF, Dilated CM BIBEMS from [facility] for 1 day of shortness of breath. Pt states he feels like there is fluid in his chest. Denies chest pain or palpitations. Denies f/c. Endorses swelling of legs. Poor historian. In detox for cocaine abuse, last use 2 weeks ago. Past History - Past Medical History Allergies/Adverse Reactions: Allergies Allergy/AdvReac Type Severity Reaction Status Date / Time Pork/Porcine Containing Allergy Intermediate Itching Verified 02/27/19 05:00 Products acetaminophen [From Tylenol] Allergy Mild Itching Verified 02/27/19 05:00 Pasta Allergy Intermediate Itching Uncoded 02/27/19 05:00 Home Medications: Ambulatory Orders Atorvastatin Ca [Lipitor] 10 mg PO HS 03/31/16 Insulin Glargine,Hum.rec.anlog [Basaglar Kwikpen U-100] 20 units SQ HS 02/20/19 Insulin Sliding Scale [Novolog Vial Sliding Scale -] 0 units SQ ACHS 02/20/19 Aspirin Coated [Ecotrin -] 81 mg PO DAILY #30 tablet.ec 02/21/19 Carvedilol 25 mg PO BID #60 tablet 02/21/19 Folic Acid - 1 mg PO DAILY #30 tablet 02/21/19 Furosemide 40 mg PO BID #60 tablet 02/21/19 Isosorbide Mononitrate [Imdur -] 30 mg PO DAILY #30 tab.sr.24h 02/21/19 Thiamine HCl [B-1] 100 mg PO DAILY #30 tablet 02/21/19 hydrALAZINE HCL [Apresoline -] 25 mg PO BID #60 tablet 02/21/19 Anemia: No Asthma: Yes Cancer: No Cardiac Disorders: Yes (cad) CVA: No COPD: No CHF: No Dementia: No Diabetes: Yes (Type II) GI Disorders: No Disorders: No HTN: Yes (ON MEDS) Hypercholesterolemia: Yes Kidney Stones: No Liver Disease: No Seizures: No Thyroid Disease: No - Surgical History Abdominal Surgery: No Appendectomy: No Cardiac Surgery: No Cholecystectomy: No Lung Surgery: No Neurologic Surgery: No Orthopedic Surgery: Yes (2014 LEFT TOES AMPUTATION) - Reproductive History Testicular Surgery: No - Psycho Social/Smoking Cessation Hx Smoking History: Never smoked Have you smoked in the past 12 months: No Number of Cigarettes Smoked Daily: 10 Hx Alcohol Use: Yes Drug/Substance Use Hx: Yes Substance Use Type: Alcohol, Cocaine, Marijuana Hx Substance Use Treatment: Yes Review of Systems - Review of Systems Able to Perform ROS?: Yes Comments:: 03/02/19 07:49 ROS: CONSTITUTIONAL: Denies F / C HEENT: Denies headache, lightheadedness, dizziness, changes in vision / hearing , diplopia, blurry vision. Denies sore throat, rhinorrhea. RESP: Endorses SOB. CARD: Denies chest pain, palpitations GI: Denies N / V / D, abdominal pain, bloody stool, inability to tolerate PO : Denies dysuria, frequency SKIN: Denies rashes NEURO: Denies numbness, tingling, weakness Is the patient limited [place] proficient: No *Physical Exam - Physical Exam Comments: 03/02/19 07:50 PE: GEN: NAD HEENT: NC/AT, EOMI, PERRLA. No facial asymmetry. Moist mucous membranes. Normal voice. Supple neck w/ FROM. CV: S1/S2, RRR, no m/r/g LUNG: Bibasilar crackles GI: soft, ndnt, +BS EXTREMITIES: 2+ pitting LE edema b/l. Partial left foot amputation. SKIN: warm, dry, normal turgor. PSYCH: odd affect NEURO: Moving all extremities well. ED Treatment Course - LABORATORY CBC & Chemistry Diagram: 02/27/19 04:50 02/27/19 04:50 - RADIOLOGY Radiology Studies Ordered: Category Date Time Status CHEST X-RAY PORTABLE* [RAD] Stat Radiology 02/27/19 04:22 Ordered Medical Decision Making - Medical Decision Making 02/27/19 04:31 MDM: 53M BIBEMS from [facility] for SOB. Crackles on exam. B/L LE pitting edema. DDx - CHF exacerbation, ACS - CBC, CMP, Cardiac, BNP - EKG - CXR 02/27/19 06:08 labs reviewed elevated BNP [id number] EKG 02/27/19 HR 83 TN 170 QRS 116 QTc 500 NSR, prolonged QT, TWI V5-6; not significantly different vs 02/20/19 CXR improved vs prior admit 02/27/19 07:11 Endorsed to hospitalist Admitted Discharge - Discharge Information Problems reviewed: Yes Clinical Impression/Diagnosis: Chest pain Condition: Improved Disposition: TRANSFER ACUTE CARE/OTHER HOSP - Follow up/Referral - Patient Discharge Instructions - Post Discharge Activity
[2019-02-27 05:05] LABS: BASO % 1.6 % (0-2.0); EOS % 3.1 % (0-4.5); HEMOGLOBIN 9.4 GM/dL (11.7-16.9); MCHC 31.2 g/dl (32.0-35.9); MEAN CELL VOLUME 73.7 fl (80-96); MEAN PLT VOLUME 8.1 fl (7.5-11.1); MONO % 9.1 % (3.8-10.2); NEUT % 69.2 % (42.8-82.8); PLATELET COUNT 226 K/MM3 (134-434); RBC 4.08 M/mm3 (4.00-5.60); RDW 18.7 % (11.9-15.9); WHITE BLOOD COUNT 6.1 K/mm3 (4.0-10.0)
[2019-02-27 05:30] LABS: ALBUMIN 2.9 g/dl (3.4-5.0); BILIRUBIN,TOTAL 0.4 mg/dL (0.2-1); BLOOD UREA NITROGEN 50.1 mg/dL (7-18); CALCIUM 8.2 mg/dL (8.5-10.1); CREATININE 3.1 mg/dL (0.55-1.3); POTASSIUM 4.7 mmol/L (3.5-5.1); TOT PROT 6.8 g/dl (6.4-8.2)
[2019-02-27 05:32] LABS: N-TERMINAL BNP 14285.4 pg/ml (5-125)
[2019-02-27 06:31] VITALS: BMI 26.5
[2019-02-27] MEDS ORDERED: FUROSEMIDE 40 MG/4 ML INJECTABLE VIAL IVPUSH ONE (07:04)
[2019-02-27] MEDS ORDERED: FUROSEMIDE 40 MG/4 ML INJECTABLE VIAL ONE (07:35)
--- NOTE | 2019-02-27 07:51 | PN ---
Teaching Attending Note Name of Resident: Abby Pierce ATTENDING PHYSICIAN STATEMENT I saw and evaluated the patient. I reviewed the resident's note and discussed the case with the resident. I agree with the resident's findings and plan as documented. SUBJECTIVE: Patient is a 53yo male with pmhx of CHF (EF 15%), CKD (baseline 2.0), HTN, DM, Asthma, polysubstance abuse (cocaine, alcohol) was recently admitted in the hospital presents in the ED c/o sob. Pt was brought in by EMS from [facility] from drug rehab. While in Ed. patient had a cxr, bnp, repeated. EKg: no change from previous. OBJECTIVE: Vital Signs Temperature 97.7 F 02/27/19 07:30 Pulse Rate 81 02/27/19 07:30 Respiratory Rate 18 02/27/19 07:30 Blood Pressure 158/105 H 02/27/19 07:30 O2 Sat by Pulse Oximetry (%) 99 02/27/19 07:30 GENERAL: The patient is awake, alert, and fully oriented, in no acute distress. HEAD: Normal with no signs of trauma. EYES: PERRL, extraocular movements intact, sclera anicteric, conjunctiva clear. ENT: Ears normal, oropharynx clear without exudates, moist mucous membranes. NECK: Trachea midline, full range of motion, supple. LUNGS: Breath sounds equal, clear to auscultation bilaterally, no rales or wheezes, no crackles, no accessory muscle use. HEART: Regular rate and rhythm, S1, S2 positive, no rub or gallop. ABDOMEN: Soft, nontender, nondistended, normoactive bowel sounds, no guarding, no rebound, no hepatosplenomegaly, no masses. EXTREMITIES: 2+ pulses, warm, well-perfused, trace edema b/l. NEUROLOGICAL: Cranial nerves II through XII grossly intact. Normal speech, gait not observed. PSYCH: Normal mood, normal affect. SKIN: Warm, dry, normal turgor, no rashes or lesions noted WBC 6.1 K/mm3 (4.0-10.0) 02/27/19 04:50 RBC 4.08 M/mm3 (4.00-5.60) 02/27/19 04:50 Hgb 9.4 GM/dL (11.7-16.9) L 02/27/19 04:50 Hct 30.0 % (35.4-49) L 02/27/19 04:50 MCV 73.7 fl (80-96) L 02/27/19 04:50 MCHC 31.2 g/dl (32.0-35.9) L 02/27/19 04:50 RDW 18.7 % (11.9-15.9) H 02/27/19 04:50 Plt Count 226 K/MM3 (134-434) 02/27/19 04:50 MPV 8.1 fl (7.5-11.1) 02/27/19 04:50 CMP Sodium 140 mmol/L (136-145) 02/27/19 04:50 Potassium 4.7 mmol/L (3.5-5.1) 02/27/19 04:50 Chloride 108 mmol/L (98-107) H 02/27/19 04:50 Carbon Dioxide 28 mmol/L (21-32) 02/27/19 04:50 Anion Gap 4 MMOL/L (8-16) L 02/27/19 04:50 BUN 50.1 mg/dL (7-18) H 02/27/19 04:50 Creatinine 3.1 mg/dL (0.55-1.3) H 02/27/19 04:50 Random Glucose 87 mg/dL (74-106) 02/27/19 04:50 Calcium 8.2 mg/dL (8.5-10.1) L 02/27/19 04:50 Total Bilirubin 0.4 mg/dL (0.2-1) 02/27/19 04:50 AST 14 U/L (15-37) L 02/27/19 04:50 ALT 17 U/L (13-61) 02/27/19 04:50 Alkaline Phosphatase 80 U/L (45-117) 02/27/19 04:50 Total Protein 6.8 g/dl (6.4-8.2) 02/27/19 04:50 Albumin 2.9 g/dl (3.4-5.0) L 02/27/19 04:50 CARDIAC ENZYMES Creatine Kinase 132 U/L (26-308) 02/27/19 04:50 Troponin I 0.04 ng/ml (0.00-0.05) 02/27/19 04:50 Home Medications Medication Instructions Recorded Atorvastatin Ca [Lipitor] 10 mg PO HS 03/31/16 Insulin Glargine,Hum.rec.anlog 20 units SQ HS 02/20/19 [Basaglar Kwikpen U-100] Insulin Sliding Scale [Novolog 0 units SQ ACHS 02/20/19 Vial Sliding Scale -] Aspirin Coated [Ecotrin -] 81 mg PO DAILY #30 tablet.ec 02/21/19 Carvedilol 25 mg PO BID #60 tablet 02/21/19 Folic Acid - 1 mg PO DAILY #30 tablet 02/21/19 Furosemide 40 mg PO BID #60 tablet 02/21/19 Isosorbide Mononitrate [Imdur -] 30 mg PO DAILY #30 tab.sr.24h 02/21/19 Thiamine HCl [B-1] 100 mg PO DAILY #30 tablet 02/21/19 hydrALAZINE HCL [Apresoline -] 25 mg PO BID #60 tablet 02/21/19 CXR: arlectatic changes in the region of the right cardiophrenic angle , no evidence of vascular congestive changes or pneumonthorax. EKG: nsr, RATE OF 83, ST-T wave abnormality, prolonged QTc 500, when compared to February , no significant change. ASSESSMENT AND PLAN: Patient is a 53 y/o man with h/o PSA ( cocaine, marijuana, ETOH, ) , CHF, DM, HTN, toes amputations, DM, diabetic neuropathy, CKD, Treatment for Gonorrhea, PVD, depression, previous suicidal attempt, presented from [facility] rehab ( -02/19) with SOB . # Acute on chronic systolic and diastolic CHF exacerbation: Echo reviewed, with EJF of 15% , severe global hypokinesis of the left ventricle. Trans-mitral spectral doppler is suggestive of restrictive physiology. EKG with Sinus rhythm , TWI in lateral leads, L axis. long QTC 495 in the previous ekg now 500. due to cocaine, monitor and avoid pure BB, instead increase the dose of Coreg to 25mg po bid from 12.5mg BID. Further evaluation including nuclear MPI, LifeVest and cardiac catheterization if patient documents compliance with medications and follow-up. Prophylactic ICD after 90 days if LVEF remains below 35% may be considered if patient is compliant with medical care. Follow up with Dr.Toni Burton as an outpatient within a week period. # JAYLEN over CKD: with cr. above 2.5, today 3.1 , no change from previous cr, Not on Spironolactone due to Cr>2.5 and hyperkalemia # H/o Polysubstance abuse: Cocaine, monitor avoid pure BB, instead increase the dose of Coreg to 25mg po bid. # DM: SSI for now. at ma he should not be using metformin due to his CHF and CKD , on levemir continue # Microcytic anemia: No signs for active bleed or signs of iron def. either due to nutritional deficiency or chronic slow GI bleed GI f/u as outpt fro EGD and colonoscopy # HTN: Continue coreg, HZN, and imdur. hold procardia as per cardio. ma patient back to rehab, accepting MD dr Kiser , follow up with Dr Burton, Dr rivas in a week period, follow up with the resident's clinic. Limit fluid to 1 liter.
--- NOTE | 2019-02-27 07:59 | HP ---
CHIEF COMPLAINT: shortness of breath PCP: From [facility] HISTORY OF PRESENT ILLNESS: Limited history due to pt not being cooperative. 53M w/ pmhx of CHF (EF 15%), CKD (baseline 2.0), HTN, DM, Asthma, polysubstance abuse (cocaine, alcohol) presents in the ED due to complaints of sob. Pt was brought in by EMS from [facility] during drug rehab and left to come to the ED. Pt was recently discharged on 02/20/19 due to similar symptoms, found to have CHF with severely reduced EF of 10% and was evaluated by cardio at that time. Per previous note, he was not a candidate for LifeVest due to poor compliance of meds and was subsequently discharged to [facility] to continue drug rehab. Home meds include Lasix 40 BID which per detox physician at [facility], he had been given routinely daily since his admission there. Denies chest pain, sánchez/d, n /v, abd pain, urinary/bowel symptoms. ER course was notable for: (1) IV Lasix 40 (2) EKG showed NSR, HR 83, QTc 500 (3) CXR showed no evid of vascular congestive changes, pulmonary infiltrates. Recent Travel: Unable to obtain PAST MEDICAL HISTORY: As per HPI PAST SURGICAL HISTORY: None, per previous notes Social History: Smoking: Denies Alcohol: Per previous note, has hx of alcohol abuse Drugs: Per previous note, has hx of cocaine abuse Allergies Pork/Porcine Containing Products Allergy (Intermediate, Verified 02/27/19 05:00) Itching acetaminophen [From Tylenol] Allergy (Mild, Verified 02/27/19 05:00) Itching Pasta Allergy (Intermediate, Uncoded 02/27/19 05:00) Itching HOME MEDICATIONS: Home Medications Medication Instructions Recorded Atorvastatin Ca [Lipitor] 10 mg PO HS 03/31/16 Insulin Glargine,Hum.rec.anlog 20 units SQ HS 02/20/19 [Basaglar Kwikpen U-100] Insulin Sliding Scale [Novolog 0 units SQ ACHS 02/20/19 Vial Sliding Scale -] Aspirin Coated [Ecotrin -] 81 mg PO DAILY #30 tablet.ec 02/21/19 Carvedilol 25 mg PO BID #60 tablet 02/21/19 Folic Acid - 1 mg PO DAILY #30 tablet 02/21/19 Furosemide 40 mg PO BID #60 tablet 02/21/19 Isosorbide Mononitrate [Imdur -] 30 mg PO DAILY #30 tab.sr.24h 02/21/19 Thiamine HCl [B-1] 100 mg PO DAILY #30 tablet 02/21/19 hydrALAZINE HCL [Apresoline -] 25 mg PO BID #60 tablet 02/21/19 REVIEW OF SYSTEMS Unable to obtain. PHYSICAL EXAMINATION Vital Signs - 24 hr 02/27/19 02/27/19 02/27/19 04:20 04:40 07:30 Temperature 98.9 F 97.7 F Pulse Rate 73 Pulse Rate [ 81 Radial] Respiratory 18 18 Rate Blood Pressure 162/95 Blood Pressure 158/105 H [Left Arm] O2 Sat by Pulse 95 97 99 Oximetry (%) GENERAL: Seen sitting up in bed, eating breakfast, NAD. AAOx3. Answers some questions. HEENT: AT/NC. EOMI. MMM. NECK: Normal range of motion, supple without lymphadenopathy, JVD, or masses. LUNGS: +wheezes b/l. Symmetric chest rise. No accessory muscle use. HEART: RRR. Normal S1, S2. No murmurs noted. ABDOMEN: Soft, NT/ND. Normoactive bowel sounds. MUSCULOSKELETAL: Normal range of motion at all joints. No bony deformities or tenderness. No CVA tenderness. UPPER EXTREMITIES: 2+ pulses, warm, well-perfused. No cyanosis. No clubbing. No peripheral edema noted. LOWER EXTREMITIES: 2+ pulses, warm, well-perfused. No calf tenderness. 2+ b/l LE edema noted. 5 left toes amputated. NEUROLOGICAL: Cranial nerves II-XII intact. Normal speech. PSYCHIATRIC: Good eye contact. Appropriate mood and affect. SKIN: Warm, dry, normal turgor, no rashes or lesions noted, normal capillary refill. Laboratory Results - last 24 hr 02/27/19 02/27/19 02/27/19 04:50 04:50 04:50 WBC 6.1 RBC 4.08 Hgb 9.4 L Hct 30.0 L MCV 73.7 L MCH 23.0 L MCHC 31.2 L RDW 18.7 H Plt Count 226 MPV 8.1 Absolute Neuts (auto) 4.2 Neutrophils % 69.2 Lymphocytes % 17.0 Monocytes % 9.1 Eosinophils % 3.1 Basophils % 1.6 Nucleated RBC % 0 Sodium 140 Potassium 4.7 Chloride 108 H Carbon Dioxide 28 Anion Gap 4 L BUN 50.1 H Creatinine 3.1 H Est GFR (CKD-EPI)AfAm 25.07 Est GFR (CKD-EPI)NonAf 21.63 Random Glucose 87 Calcium 8.2 L Total Bilirubin 0.4 AST 14 L ALT 17 Alkaline Phosphatase 80 Creatine Kinase 132 Troponin I 0.04 B-Natriuretic Peptide 14138.4 H Total Protein 6.8 Albumin 2.9 L ASSESSMENT/PLAN: 53M with PMHx of CHF, CKD, HTN, DM II, Asthma, Cocaine and EtOH abuse who presents from [facility] for continued worsening of his shortness of breath due to CHF exacerbation. #Hx of systolic CHF; Stable, no clinical signs of fluid overload at this time. -Lungs clear, VS stable, O2 sat 100% on RA. CXR improved from 02/20 with no evid of pulm congestive changes, BNP still elevated, but improved since last admission. -Most recent echo showed EF= 15%, severe global hypokinesis of the LV, transmitral spectral Doppler flow is suggestive of restrictive physiology. RV is normal in size and function. LA normal -1L fluid restriction -Patient is currently poor candidate for Life Vest, will need to demonstrate medication compliance and continued follow up with casting trucker. -Advised close cardiology follow up as an outpatient Cont home meds: Carvedilol 12.5 mg PO BID, Hydralazine 25 mg PO BID, Mononitrate 30 mg PO Daily, Lasix 40 mg PO BID, ASA 81 mg PO Daily #Acute on Chronic CKD; Elevated at 3.1, same since prior admission. -Renal U/S done on previous admission showed mild dilatation of R renal pelvis. -Will need outpatient follow up with entertainment reporter -Avoid nephrotoxic agents; Not on Spironolactone due to elevated Cr #DM II; -HbA1c of 9.6% -Insulin Sliding Scale #Poly-Substance Abuse; Advised to return to [facility] for Drug rehab. -Avoid pure BB in setting of cocaine use #Prophylaxis DVT: SCDs #FEN -No fluids -Monitor BMP -Sodium restricted, diabetic diet Dispo -Medically stable to return to [facility] for drug rehab, accepted by Dr. Doan. Visit type - Emergency Visit Emergency Visit: Yes ED Registration Date: 02/27/19 Care time: The patient presented to the Emergency Department on the above date and was hospitalized for further evaluation of their emergent condition. - New Patient This patient is new to me today: Yes Date on this admission: 02/27/19 - Critical Care Critical Care patient: No ATTENDING PHYSICIAN STATEMENT I saw and evaluated the patient. I reviewed the resident's note and discussed the case with the resident. I agree with the resident's findings and plan as documented. SUBJECTIVE: OBJECTIVE: ASSESSMENT AND PLAN:
[2019-02-27] MEDS ORDERED: PT OWN MED DRAWER 7, Y5N ONE (08:35)
[2019-02-27] MEDS ORDERED: hydrALAZINE HCL 25 MG TABLET (FP) ONE (08:37)
[2019-02-27] MEDS ORDERED: CARVEDILOL 12.5 MG TABLET (FP) ONE (08:38)
[2019-02-27] MEDS ORDERED: ASPIRIN COATED 81 MG TABLET.EC ONE (08:40)
[2019-02-27] MEDS ORDERED: ISOSORBIDE MONONITRATE 60 MG TAB.SR.24H (FP) PO ONE (08:41)
[2019-02-27] MEDS ORDERED: THIAMINE HCL 100 MG TABLET (FP) ONE (08:41)
[2019-02-27 09:06] VITALS: BP 160/99; PULSE 84; TEMP 97
--- NOTE | 2019-02-27 09:31 | DS ---
Physical Exam: SUBJECTIVE: Patient seen and examined at bedside. No acute events overnight. OBJECTIVE: Vital Signs Period Temp Pulse Resp BP Sys/Baez Pulse Ox Last 24 Hr 97 F-98.9 F 73-84 18-20 158-162/95-105 95-99 PHYSICAL EXAM GENERAL: Seen sitting up in bed, eating breakfast, NAD. AAOx3. Answers some questions. HEENT: AT/NC. EOMI. MMM. NECK: Normal range of motion, supple without lymphadenopathy, JVD, or masses. LUNGS: +wheezes b/l. Symmetric chest rise. No accessory muscle use. HEART: RRR. Normal S1, S2. No murmurs noted. ABDOMEN: Soft, NT/ND. Normoactive bowel sounds. MUSCULOSKELETAL: Normal range of motion at all joints. No bony deformities or tenderness. No CVA tenderness. UPPER EXTREMITIES: 2+ pulses, warm, well-perfused. No cyanosis. No clubbing. No peripheral edema noted. LOWER EXTREMITIES: 2+ pulses, warm, well-perfused. No calf tenderness. 2+ b/l LE edema noted. 5 left toes amputated. NEUROLOGICAL: Cranial nerves II-XII intact. Normal speech. PSYCHIATRIC: Good eye contact. Appropriate mood and affect. SKIN: Warm, dry, normal turgor, no rashes or lesions noted, normal capillary refill. LABS Laboratory Results - last 24 hr 02/27/19 02/27/19 02/27/19 04:50 04:50 04:50 WBC 6.1 RBC 4.08 Hgb 9.4 L Hct 30.0 L MCV 73.7 L MCH 23.0 L MCHC 31.2 L RDW 18.7 H Plt Count 226 MPV 8.1 Absolute Neuts (auto) 4.2 Neutrophils % 69.2 Lymphocytes % 17.0 Monocytes % 9.1 Eosinophils % 3.1 Basophils % 1.6 Nucleated RBC % 0 Sodium 140 Potassium 4.7 Chloride 108 H Carbon Dioxide 28 Anion Gap 4 L BUN 50.1 H Creatinine 3.1 H Est GFR (CKD-EPI)AfAm 25.07 Est GFR (CKD-EPI)NonAf 21.63 Random Glucose 87 Calcium 8.2 L Total Bilirubin 0.4 AST 14 L ALT 17 Alkaline Phosphatase 80 Creatine Kinase 132 Troponin I 0.04 B-Natriuretic Peptide 05337.4 H Total Protein 6.8 Albumin 2.9 L HOSPITAL COURSE: Date of Admission:02/27/19 53M w/ pmhx of CHF (EF 15%), CKD (baseline 2.0), HTN, DM, Asthma, polysubstance abuse (cocaine, alcohol) presents in the ED due to complaints of sob. In the ED , VS were stable, CXR showed no evid of vascular congestive changes or PTX. BNP was ~20370v (improved since last admission ~82564d). EKG showed NSR, prolonged QTc 500 ms. He was given IV Lasix in the ED. During his hospital stay, his symptoms improved. He was subsequently discharged back to [facility] rehab and advised to follow up with his PCP, baseball glove shaper, and debit agent as an outpatient. He was also advised to continue taking his meds daily as prescribed and to limit his daily fluid intake to 1L. Date of Discharge: 02/27/19 Minutes to complete discharge: 40 Discharge Summary Problems reviewed: Yes Reason For Visit: CHF Current Active Problems Alcohol dependence (Acute) Cocaine dependence (Acute) Asthma (Chronic) Diabetes mellitus, type II, insulin dependent (Chronic) Dilated cardiomyopathy (Chronic) Hypercholesteremia (Chronic) Hypertension (Chronic) NYHA class 3 heart failure with reduced ejection fraction (Chronic) Condition: Improved - Instructions Diet, Activity, Other Instructions: You were seen in the hospital for complaints of shortness of breath. A chest x- ray was done that did not show any fluid in your lungs or changes since your previous admission. You were given IV diuretic to help with your breathing. Your symptoms improved and you are being discharged back to [facility] for drug rehab. Medications Please continue taking your home meds as prescribed. Carvedilol 25 mg by mouth, twice a day. Hydralazine 25 mg by mouth, twice a day Isosorbide Mononitrate 30 mg by mouth, once a day. Aspirin 81 mg by mouth, once a day. Furosemide 40 my by mouth, twice a day. PLEASE LIMIT YOUR FLUID INTAKE TO 1 LITER PER DAY Follow Up Please follow up with your primary care physician within 1 week. If you do not have one, you may make an appointment with Dr. Dooley at [facility] the [facility]. Please follow up with your debit agent, Dr. Arce within 1 week. Please follow up with your baseball glove shaper, Dr. Burton within 1 week. Return to the emergency department if you have chest pain, shortness of breath, worsening headache, nausea, vomiting, diarrhea, or worsening of your condition. Referrals: [facility] [place] [Provider Group] - 1 Week Heri Arce MD [Staff Physician] - 1 Week Jaspal Burton MD [Staff Physician] - 1 Week - Home Medications Comprehensive Discharge Medication List: Ambulatory Orders Atorvastatin Ca [Lipitor] 10 mg PO HS 03/31/16 Insulin Glargine,Hum.rec.anlog [Basaglar Kwikpen U-100] 20 units SQ HS 02/20/19 Insulin Sliding Scale [Novolog Vial Sliding Scale -] 0 units SQ ACHS 02/20/19 Aspirin Coated [Ecotrin -] 81 mg PO DAILY #30 tablet.ec 02/21/19 Carvedilol 25 mg PO BID #60 tablet 02/21/19 Folic Acid - 1 mg PO DAILY #30 tablet 02/21/19 Furosemide 40 mg PO BID #60 tablet 02/21/19 Isosorbide Mononitrate [Imdur -] 30 mg PO DAILY #30 tab.sr.24h 02/21/19 Thiamine HCl [B-1] 100 mg PO DAILY #30 tablet 02/21/19 hydrALAZINE HCL [Apresoline -] 25 mg PO BID #60 tablet 02/21/19 This patient is new to me today: Yes Date on this admission: 02/27/19 Emergency Visit: Yes ED Registration Date: 02/27/19 Care time: The patient presented to the Emergency Department on the above date and was hospitalized for further evaluation of their emergent condition. Critical Care patient: No - Discharge Referral Referred to [facility] No ATTENDING PHYSICIAN STATEMENT I saw and evaluated the patient. I reviewed the resident's note and discussed the case with the resident. I agree with the resident's findings and plan as documented. SUBJECTIVE: OBJECTIVE: ASSESSMENT AND PLAN:
--- NOTE | 2019-02-27 09:48 | EKG ---
Test Reason : Blood Pressure : / mmHG Vent. Rate : 080 BPM Atrial Rate : 080 BPM P-R Int : 170 ms QRS Dur : 114 ms QT Int : 424 ms P-R-T Axes : 105 211 057 degrees QTc Int : 489 ms SUSPECT ARM LEAD REVERSAL, INTERPRETATION ASSUMES NO REVERSAL NORMAL SINUS RHYTHM LIMB LEAD REVERSAL Right arm-left leg lead reversal. WHEN COMPARED WITH ECG OF 20-FEB-2019 04:45, QRS AXIS SHIFTED LEFT Confirmed by MD MICH, JUANY ([id number]) on 02/27/2019 9:48:24 AM Referred By: Confirmed By:JUANY EPPS MD
[2019-02-27] MEDS ORDERED: hydrALAZINE HCL 25 MG TABLET (FP) PO SCH (10:00)
[2019-02-27] MEDS ORDERED: FOLIC ACID 1 MG TABLET (FP) PO SCH (10:00)
[2019-02-27] MEDS ORDERED: THIAMINE HCL 100 MG TABLET (FP) PO SCH (10:00)
[2019-02-27] MEDS ORDERED: CARVEDILOL 25 MG TABLET (FP) PO SCH (10:00)
[2019-02-27] MEDS ORDERED: ASPIRIN COATED 81 MG TABLET.EC PO SCH (10:00)
[2019-02-27] MEDS ORDERED: ISOSORBIDE MONONITRATE 30 MG TAB.SR.24H (FP) PO SCH (10:00)
[2019-02-27] MEDS ORDERED: INSULIN SLIDING SCALE (NOVOLOG) 1 VIAL SQ SCH (11:00)
[2019-02-27] MEDS ORDERED: PATIENT'S OWN MEDICATION (NON-FORMULARY) (Insulin Glargine,Hum.Rec.Anlog [Basaglar Kwikpen SQ SCH (22:00)
[2019-02-27] MEDS ORDERED: INSULIN (LEVEMIR) 100 UNITS/ML UNITS SQ SCH (22:00)
[2019-02-27] MEDS ORDERED: ATORVASTATIN CA 10 MG TABLET (FP) PO SCH (22:00)
--- NOTE | 2019-02-28 11:37 | EKG ---
Test Reason : Blood Pressure : / mmHG Vent. Rate : 083 BPM Atrial Rate : 083 BPM P-R Int : 170 ms QRS Dur : 116 ms QT Int : 426 ms P-R-T Axes : 083 -22 088 degrees QTc Int : 500 ms POOR DATA QUALITY, INTERPRETATION MAY BE ADVERSELY AFFECTED NORMAL SINUS RHYTHM PROLONGED QT ABNORMAL ECG WHEN COMPARED WITH ECG OF 27-FEB-2019 04:43, QRS AXIS SHIFTED RIGHT T WAVE INVERSION MORE EVIDENT IN LATERAL LEADS Confirmed by VARUN ENGLE, PATRICK ([id number]) on 02/28/2019 11:37:24 AM Referred By: Confirmed By:PATRICK BOND MD
== END 2019-02-27 11:15 | disposition other institution (70) ==
LOC: JER 03:48 → UNDOADMIN 06:15 → JERBED 06:15
PROVIDERS: ADMIT Internal Medicine; ATTEND Internal Medicine
PROC: 3E033GC Introduction of Other Therapeutic Substance into Peripheral Vein, Percutaneous Approach (ICD-10-PCS; principal; 2019-02-27)
DX: I13.0 Hypertensive heart and chronic kidney disease with heart failure and stage 1 through stage 4 chronic kidney disease, or unspecified chronic kidney disease (principal); I50.43 Acute on chronic combined systolic (congestive) and diastolic (congestive) heart failure; N18.9 Chronic kidney disease, unspecified; E11.22 Type 2 diabetes mellitus with diabetic chronic kidney disease; E11.42 Type 2 diabetes mellitus with diabetic polyneuropathy; Z79.4 Long term (current) use of insulin; N17.9 Acute kidney failure, unspecified; D50.9 Iron deficiency anemia, unspecified; E78.5 Hyperlipidemia, unspecified; J45.909 Unspecified asthma, uncomplicated; I42.0 Dilated cardiomyopathy; I25.10 Atherosclerotic heart disease of native coronary artery without angina pectoris; F10.10 Alcohol abuse, uncomplicated; F14.10 Cocaine abuse, uncomplicated; F12.10 Cannabis abuse, uncomplicated; I73.9 Peripheral vascular disease, unspecified; F32.9 Major depressive disorder, single episode, unspecified; I45.81 Long QT syndrome; Z89.422 Acquired absence of other left toe(s); Z88.8 Allergy status to other drugs, medicaments and biological substances; Z91.018 Allergy to other foods; Z79.82 Long term (current) use of aspirin; Z91.5 Personal history of self-harm
CPT/HCPCS: 36415; 71045-TC-FY; 80053; 82550; 83880; 84484; 85025; 93005; 93010; 96374; 99285-25; G0378